=== PATIENT | female | born 1935 | race American Indian/Alaskan Native ===

== ENCOUNTER 2019-04-26 10:45 | Inpatient (IN) | payer MEDICARE ==
[2019-04-26] MEDS ORDERED: ONDANSETRON 4 MG/2 ML INJ IV ONE (11:19)
[2019-04-26] MEDS ORDERED: LACTATED RINGERS 1,000 ML IV ONE ×2 (11:19→15:09)
--- NOTE | 2019-04-26 11:22 | Emergency Department Report ---
ED General Adult HPI - General Chief complaint: Nausea/Vomiting/Diarrhea Stated complaint: STOMACH PAIN/VOMIT Time Seen by Provider: 04/26/19 11:18 Source: patient, family Mode of arrival: Wheelchair Limitations: Physical Limitation - History of Present Illness Initial comments: Pt brought in by grandson for concerns of vomiting she states she feels fine and only vomited once this AM denies diarrhea Denies CP, abd pain, SOB, MARTIN or any other complaints States she thinks she might have eaten some bad food yesterday -: Sudden, hour(s) (3) Location: abdomen Radiation: non-radiation Severity scale (0 -10): 0 Consistency: intermittent Improves with: none Worsens with: none Associated Symptoms: denies other symptoms, nausea/vomiting Treatments Prior to Arrival: none - Related Data Home Medications Medication Instructions Recorded Confirmed Last Taken Aspirin [Aspirin TAB] 325 mg PO PRN PRN 10/08/17 10/08/17 Unknown Ciprofloxacin HCl [Cipro] 500 mg PO BID 10/08/17 10/08/17 Unknown Citalopram [celeXA] 10 mg PO QDAY 10/08/17 10/08/17 Unknown HYDROcodone/APAP 5-325 [[place] 1 each PO Q6HR PRN 10/08/17 10/08/17 Unknown 5/325] Losartan/Hydrochlorothiazide 1 each PO DAILY 10/08/17 10/08/17 Unknown [Losartan-Hctz 50-12.5 mg Tab] Previous Rx's Medication Instructions Recorded Last Taken Type Ondansetron [Zofran Odt] 4 mg PO Q8HR #12 tab.rapdis 04/26/19 Unknown Rx Allergies Allergy/AdvReac Type Severity Reaction Status Date / Time Penicillins Allergy Swelling Verified 07/09/13 13:40 Sulfa (Sulfonamide Allergy Headache Verified 07/09/13 13:40 Antibiotics) ED Review of Systems ROS: Stated complaint: STOMACH PAIN/VOMIT Other details as noted in HPI Comment: All other systems reviewed and negative Gastrointestinal: as per HPI ED Past Medical Hx - Past Medical History Previous Medical History?: Yes Hx Hypertension: Yes (X 10 YRS) Hx Diabetes: Yes Hx Kidney Stones: Yes Hx Dementia: Yes Hx HIV: No Additional medical history: prolapsed bladder - Surgical History Past Surgical History?: Yes Hx Breast Surgery: Yes (AUGMENTATION , REMOVAL OF IMPLANTS) Additional Surgical History: hernia repair - Social History Smoking Status: Never Smoker Substance Use Type: Prescribed - Medications Home Medications: Home Medications Medication Instructions Recorded Confirmed Last Taken Type Aspirin [Aspirin TAB] 325 mg PO PRN PRN 10/08/17 10/08/17 Unknown History Ciprofloxacin HCl [Cipro] 500 mg PO BID 10/08/17 10/08/17 Unknown History Citalopram [celeXA] 10 mg PO QDAY 10/08/17 10/08/17 Unknown History HYDROcodone/APAP 5-325 [[place] 1 each PO Q6HR PRN 10/08/17 10/08/17 Unknown History 5/325] Losartan/Hydrochlorothiazide 1 each PO DAILY 10/08/17 10/08/17 Unknown History [Losartan-Hctz 50-12.5 mg Tab] Ondansetron [Zofran Odt] 4 mg PO Q8HR #12 tab.rapdis 04/26/19 Unknown Rx ED Physical Exam - General Limitations: Physical Limitation General appearance: alert, in no apparent distress - Head Head exam: Present: atraumatic, normocephalic - Eye Eye exam: Present: normal appearance - ENT ENT exam: Present: mucous membranes moist - Neck Neck exam: Present: normal inspection - Respiratory Respiratory exam: Present: normal lung sounds bilaterally. Absent: respiratory distress - Cardiovascular Cardiovascular Exam: Present: normal rhythm, bradycardia. Absent: systolic murmur, diastolic murmur, rubs, gallop - GI/Abdominal GI/Abdominal exam: Present: soft, normal bowel sounds. Absent: distended, tenderness, guarding, rebound - Extremities Exam Extremities exam: Present: normal inspection - Back Exam Back exam: Present: normal inspection. Absent: CVA tenderness (R), CVA tenderness (L) - Neurological Exam Neurological exam: Present: alert, oriented X3 - Psychiatric Psychiatric exam: Present: normal affect, normal mood - Skin Skin exam: Present: warm, dry, intact, normal color. Absent: rash ED Course Vital Signs 04/26/19 10:49 Temperature 98.4 F Pulse Rate 50 L Respiratory 18 Rate Blood Pressure 156/73 O2 Sat by Pulse 97 Oximetry ED Medical Decision Making - Lab Data Result diagrams: 04/26/19 11:43 04/26/19 11:43 Lab Results 04/26/19 04/26/19 04/26/19 Range/Units 11:39 11:43 11:43 WBC 6.8 (4.5-11.0) K/mm3 RBC 4.87 (3.65-5.03) M/mm3 Hgb 13.5 (10.1-14.3) gm/dl Hct 40.4 (30.3-42.9) % MCV 83 (79-97) fl MCH 28 (28-32) pg MCHC 34 (30-34) % RDW 14.1 (13.2-15.2) % Plt Count 227 (140-440) K/mm3 Lymph % (Auto) 19.6 (13.4-35.0) % Dunn % (Auto) 4.0 (0.0-7.3) % Eos % (Auto) 0.4 (0.0-4.3) % Baso % (Auto) 0.8 (0.0-1.8) % Lymph # 1.3 (1.2-5.4) K/mm3 Dunn # 0.3 (0.0-0.8) K/mm3 Eos # 0.0 (0.0-0.4) K/mm3 Baso # 0.1 (0.0-0.1) K/mm3 Seg Neutrophils % 75.2 H (40.0-70.0) % Seg Neutrophils # 5.1 (1.8-7.7) K/mm3 Sodium 136 L (137-145) mmol/L Potassium 4.0 (3.6-5.0) mmol/L Chloride 97.4 L (98-107) mmol/L Carbon Dioxide 24 (22-30) mmol/L Anion Gap 19 mmol/L BUN 20 H (7-17) mg/dL Creatinine 1.0 (0.7-1.2) mg/dL Estimated GFR > 60 ml/min BUN/Creatinine Ratio 20 % Glucose 112 H (65-100) mg/dL Calcium 10.0 (8.4-10.2) mg/dL Total Bilirubin 0.60 (0.1-1.2) mg/dL AST 15 (5-40) units/L ALT 7 (7-56) units/L Alkaline Phosphatase 51 (35-129) units/L Troponin T < 0.010 (0.00-0.029) ng/mL Total Protein 8.7 H (6.3-8.2) g/dL Albumin 4.3 (3.9-5) g/dL Albumin/Globulin Ratio 1.0 % Lipase 25 (13-60) units/L Urine Color Straw (Yellow) Urine Turbidity Clear (Clear) Urine pH 8.0 H (5.0-7.0) Ur Specific Ola 1.012 (1.003-1.030) Urine Protein <15 mg/dl (Negative) mg/dL Urine Glucose (UA) Neg (Negative) mg/dL Urine Ketones Neg (Negative) mg/dL Urine Blood Neg (Negative) Urine Nitrite Neg (Negative) Urine Bilirubin Neg (Negative) Urine Urobilinogen < 2.0 (<2.0) mg/dL Ur Leukocyte Esterase Sm (Negative) Urine WBC (Auto) 2.0 (0.0-6.0) /HPF Urine RBC (Auto) 2.0 (0.0-6.0) /HPF U Epithel Cells (Auto) < 1.0 (0-13.0) /HPF Urine Mucus Few /HPF - EKG Data -: EKG Interpreted by Me EKG shows normal: sinus rhythm Rate: bradycardia - EKG Data Interpretation: no acute changes - Medical Decision Making vomiting x one today pt with no complaints grandson wanted her checked out I did give her IVF and zofran w improvement labs stable overall recommend supportive care, pcp fu RTER for worsening sx/other concerns Able to tolerate PO here, abdomen soft, nontender - Differential Diagnosis gastritis, gastroenteritis, dehydration Critical care attestation.: If time is entered above; I have spent that time in minutes in the direct care of this critically ill patient, excluding procedure time. ED Disposition Clinical Impression: Vomiting Qualifiers: Vomiting type: unspecified Vomiting Intractability: non-intractable Nausea pres ence: with nausea Qualified Code(s): R11.2 - Nausea with vomiting, unspecified Disposition: DC-01 TO HOME OR SELFCARE Is pt being admited?: No Condition: Good Instructions: Acute Nausea and Vomiting (ED) Prescriptions: Ondansetron [Zofran Odt] 4 mg PO Q8HR #12 tab.rapdis Referrals: PRIMARY CARE, [Primary Care Provider] - 2-3 Days Time of Disposition: 14:34
[2019-04-26 11:49] LABS: Basophils # (Auto) 0.1 K/mm3 (0.0-0.1); Basophils % (Auto) 0.8 % (0.0-1.8); Eosinophils % (Auto) 0.4 % (0.0-4.3); Hematocrit 40.4 % (30.3-42.9); Hemoglobin 13.5 gm/dl (10.1-14.3); Lymphocytes # (Auto) 1.3 K/mm3 (1.2-5.4); Lymphocytes % (Auto) 19.6 % (13.4-35.0); Mean Corpuscular HGB Conc 34 % (30-34); Mean Corpuscular Volume 83 fl (79-97); Monocytes # (Auto) 0.3 K/mm3 (0.0-0.8); Platelet Count 227 K/mm3 (140-440); Red Blood Count 4.87 M/mm3 (3.65-5.03); Red Cell Distribution Width 14.1 % (13.2-15.2)
[2019-04-26 12:04] LABS: Alanine Aminotransferase 7 units/L (7-56); Albumin 4.3 g/dL (3.9-5); BUN/Creatinine Ratio 20; Blood Urea Nitrogen 20 mg/dL (7-17); Hemolysis Index 5
[2019-04-26] MEDS ORDERED: ONDANSETRON 4 MG ODT TAB PO ONE (14:19)
[2019-04-26] MEDS ORDERED: ONDANSETRON 4 MG ODT TAB ONE (14:22)
[2019-04-26 14:24] LABS: Bilirubin,Urine NEG (Negative); Blood,Urine NEG (Negative); Color,Urine Straw (Yellow); Mucus,Urine FEW /HPF; Protein,Urine <15 mg/dL mg/dL (Negative); Urobilinogen,Urine < 2.0 mg/dL (<2.0)
[2019-04-26] MEDS ORDERED: PROMETHAZINE 25 MG TAB PO ONE (14:51)
[2019-04-26] MEDS ORDERED: PROMETHAZINE 25 MG TAB ONE (14:54)
[2019-04-26] MEDS ORDERED: diphenhydrAMINE 50 MG/ML VIAL IV ONE (15:09)
[2019-04-26] MEDS ORDERED: METOCLOPRAMIDE 10 MG/2 ML INJ IV ONE (15:09)
--- NOTE | 2019-04-26 16:56 | Cat Scan Report ---
CT abdomen pelvis wo con INDICATION / CLINICAL INFORMATION: abd pain. TECHNIQUE: Axial CT imaging of abdomen and pelvis was obtained without contrast. Coronal and sagittal reformatte d imaging obtained and reviewed. All CT scans at this location are performed using CT dose reduction for ALARA by means of automated exposure control. COMPARISON: Prior CT, 10/05/2017 FINDINGS: CT abdomen without contrast demonstrates grossly normal appearance of the liver, spleen, pancreas, ad renal glands, and gallbladder. There are nonobstructing calculi in the lower pole of the left kidney. Vascular calcification is noted within the right kidney. Small hiatal hernia is present. CT pelvis demonstrates several dilated loops of fluid-filled bowel which appear inflamed. These are p resent in the left side of the abdomen. The bowel proximal and distal to these abnormal loops of smal l bowel are nondilated. The appearance is certainly worrisome for bowel obstruction due to presence o f internal hernia within the left midabdomen. Remainder of the GI tract is grossly unremarkable other than diverticulosis throughout the colon. A small amount of free fluid is seen scattered throughout the pelvis. A normal appendix is present in the right lower quadrant. Visualized lung bases are grossly clear. No significant osseous abnormality. IMPRESSION: 1. Several loops of dilated fluid-filled bowel are present in the left midabdomen and have an appeara nce consistent with small bowel obstruction. The overall appearance is worrisome for obstruction due to an internal hernia. 2. Nephrolithiasis. 3. Diverticulosis. Signer Name: Jody Velarde MD Signed: 04/26/2019 4:51 PM Workstation Name: [id number]
[2019-04-26] MEDS ORDERED: clonazePAM 0.5 MG TAB PO ONE (17:25)
[2019-04-26] MEDS ORDERED: ONDANSETRON 4 MG/2 ML INJ IV PRN ×3 (17:44→21:12)
[2019-04-26] MEDS ORDERED: ALBUTEROL 2.5 MG/3 ML NEBU IH PRN (17:44)
[2019-04-26] MEDS ORDERED: ACETAMINOPHEN 325 MG TAB PO PRN (17:44)
--- NOTE | 2019-04-26 17:47 | History and Physical Report ---
History of Present Illness Chief complaint: I feel nauseated, I think I ate some bad food History of present illness: 84 YO Female with Dementia, HTN presents to ED for evaluation. Pt states that she experienced an episode of vomiting today which was followed by persistent nausea. Pt grandson became concerned and transported pt to [facility] via private vehicle. Pt seen and evaluated in ED and found to have an Incarcerated Internal Hernia complicated by bowel obstruction. Surgery team consulted in ED. Pt to OR as per surgical team. Pt denies Fever, Chills, CP,Palpitations, loose stools, Abdominal Pain, BRBPR, Hemoptysis, Skin Rash, Unintentional Weight Loss, or Night Sweats. Prior admission on 10/03/17 reviewed. All listed medication reconciled at time of exam. Past History Past Medical History: hypertension, other (Dementia, ) Past Surgical History: Other (breast, Renal Stent) Social history: . denies: smoking, alcohol abuse, prescription drug abuse Family history: hypertension Medications and Allergies Allergies Allergy/AdvReac Type Severity Reaction Status Date / Time Penicillins Allergy Swelling Verified 07/09/13 13:40 Sulfa (Sulfonamide Allergy Headache Verified 07/09/13 13:40 Antibiotics) Home Medications Medication Instructions Recorded Confirmed Last Taken Type Aspirin [Aspirin TAB] 325 mg PO PRN PRN 10/08/17 04/26/19 Unknown History Losartan/Hydrochlorothiazide 1 each PO DAILY 10/08/17 04/26/19 Unknown History [Losartan-Hctz 50-12.5 mg Tab] Atenolol [Tenormin] 50 mg PO DAILY 04/26/19 04/26/19 Unknown History Donepezil HCl 5 mg PO HS 04/26/19 04/26/19 Unknown History Hydralazine HCl 25 mg PO BID 04/26/19 04/26/19 Unknown History Ondansetron [Zofran Odt] 4 mg PO Q8HR #12 tab.rapdis 04/26/19 Unknown Rx Active Meds: Active Medications Acetaminophen (Tylenol) 650 mg PO Q4H PRN PRN Reason: Pain MILD(1-3)/Fever >100.5/MARTIN Albuterol (Proventil) 2.5 mg IH Q4HRT PRN PRN Reason: Shortness Of Breath Ondansetron HCl (Zofran) 4 mg IV Q8H PRN PRN Reason: Nausea And Vomiting Sodium Chloride (Sodium Chloride Flush Syringe 10 Ml) 10 ml IV BID KARLY Sodium Chloride (Sodium Chloride Flush Syringe 10 Ml) 10 ml IV PRN PRN PRN Reason: LINE FLUSH Review of Systems Constitutional: no weight loss, no weight gain, no fever, no chills Ears, nose, mouth and throat: no ear pain, no ear discharge, no tinnitis, no nasal discharge, no sinus pressure Breasts: no change in shape, no swelling, no mass Cardiovascular: no chest pain, no orthopnea, no palpitations, no rapid/irregular heart beat, no edema, no syncope, no lightheadedness Respiratory: no cough, no excessive sputum, no hemoptysis, no shortness of breath, no dyspnea on exertion Gastrointestinal: nausea, no abdominal pain, no vomiting, no diarrhea, no hematemesis, no coffee ground emesis, no melena, no hematochezia, no early satiety, no heartburn Genitourinary Female: no pelvic pain, no flank pain, no menorrhagia, no dysuria, no urinary frequency, no urgency Rectal: no pain, no incontinence, no bleeding Musculoskeletal: no neck stiffness, no neck pain, no arm numbness/tingling, no low back pain, no shooting leg pain Integumentary: no rash, no pruritis, no redness, no sores, no wounds Neurological: no transient paralysis, no paralysis, no weakness, no parathesias, no tingling, no syncope, no ataxia, no lack of coordination Psychiatric: no anxiety, no memory loss, no change in sleep habits, no sleep disturbances, no insomnia, no hypersomnia, no change in appetite, no change in libido, no suicidal ideation Endocrine: no cold intolerance, no heat intolerance, no polyphagia, no excessive thirst, no polydipsia, no polyuria, no excessive sweating, no flushing Hematologic/Lymphatic: no easy bruising, no easy bleeding, no lymphadenopathy, no lymphedema Allergic/Immunologic: no urticaria, no allergic rhinitis, no wheezing, no anaphylaxis, no angioedema Exam - Constitutional Vitals: Temp Pulse Resp BP Pulse Ox 98.1 F 50 L 20 113/71 98 04/26/19 16:45 04/26/19 16:45 04/26/19 16:45 04/26/19 16:45 04/26/19 16:45 General appearance: Present: no acute distress, well-nourished - EENT Eyes: Present: PERRL ENT: hearing intact, clear oral mucosa - Neck Neck: Present: supple, normal ROM - Respiratory Respiratory effort: normal Respiratory: bilateral: CTA - Cardiovascular Heart Sounds: Present: S1 & S2. Absent: rub, click - Extremities Extremities: pulses symmetrical, No edema Peripheral Pulses: within normal limits - Abdominal General gastrointestinal: Present: soft, non-tender, non-distended, normal bowel sounds Female genitourinary: Present: normal - Integumentary Integumentary: Present: clear, warm, dry - Musculoskeletal Musculoskeletal: gait normal, strength equal bilaterally - Psychiatric Psychiatric: appropriate mood/affect, intact judgment & insight - Neurologic Neurologic: CNII-XII intact, moves all extremities Results - Labs CBC & Chem 7: 04/26/19 11:43 04/26/19 11:43 Labs: Abnormal lab results 04/26/19 04/26/19 04/26/19 Range/Units 11:39 11:43 11:43 Seg Neutrophils % 75.2 H (40.0-70.0) % Sodium 136 L (137-145) mmol/L Chloride 97.4 L (98-107) mmol/L BUN 20 H (7-17) mg/dL Glucose 112 H (65-100) mg/dL Total Protein 8.7 H (6.3-8.2) g/dL Urine pH 8.0 H (5.0-7.0) Assessment and Plan - Patient Problems (1) Internal hernia Current Visit: Yes Status: Acute Plan to address problem: Surgery consulted in ED, pending surgical intervention, bowel rest, NPO, IVF resuscitation therapy, CT Abdomen/Pelvis, serial abdominal exam. (2) Dementia Current Visit: Yes Status: Acute Qualifiers: Dementia type: vascular dementia Dementia behavioral disturbance: without behavioral disturbance Qualified Code(s): F01.50 - Vascular dementia without behavioral disturbance Plan to address problem: Supportive care, continue medical management. (3) Small bowel obstruction Current Visit: Yes Status: Acute Plan to address problem: CT ABdomen pelvis, anti-emetic therapy, Bowel rest, IVF resuscitation therapy, surgery consulted, (4) Advance care planning Current Visit: Yes Status: Acute Plan to address problem: Pt daughter and grandson at bedside. Discussed care plan, code status, and ris ks/benefits associated with surgery. Pt family acknowledges understanding and agreement with care plan. (5) DVT prophylaxis Current Visit: Yes Status: Acute Plan to address problem: SCD to BLE while in bed, supportive care.
[2019-04-26] MEDS ORDERED: HYDROmorphone 1 MG/1 ML INJ IV PRN (18:32)
--- NOTE | 2019-04-26 18:33 | Anesthesia Day of Surgery ---
Anesthesia Day of Surgery - Day of Surgery Patient Examined: Yes Patient H&P Reviewed: Yes Patient is NPO: Yes
--- NOTE | 2019-04-26 18:37 | Anesthesia Consultation ---
Anesthesia Consult and Med Hx Date of service: 04/26/19 - Airway Anesthetic Teeth Evaluation: Good, Dentures (upper), Edentulous (upper edent) ROM Head & Neck: Adequate Mental/Hyoid Distance: Adequate Mallampati Class: Class II Intubation Access Assessment: Good - Pre-Operative Health Status ASA Pre-Surgery Classification: ASA2, Emergency Proposed Anesthetic Plan: General - Pulmonary Hx Smoking: No Hx Sleep Apnea: No (NORA PRE SCREEN LOW RISK) - Cardiovascular System Hx Hypertension: Yes (X 10 YRS. States she can climb two flights of stairs) - Central Nervous System Hx Neuromuscular Disorder: Yes (Dementia. Pt alert and appropriate) Hx Back Pain: Yes (FROM STONE) - Endocrine Hx Renal Disease: Yes (Hx stones last year; bladder prolapse) Hx Non-Insulin Dependent Diabetes: No - Other Systems Hx Cancer: No
[2019-04-26] MEDS ORDERED: ROCURONIUM 50 MG/5 ML INJ IV ONE (18:49)
[2019-04-26] MEDS ORDERED: HYDROmorphone 1 MG/1 ML INJ ONE (18:49)
[2019-04-26] MEDS ORDERED: LIDOCAINE MPF (2%) 20 MG/1 ML VIAL 5 ML ONE (18:49)
[2019-04-26] MEDS ORDERED: PROPOFOL 200 MG/20 ML VIAL IV ONE (18:49)
[2019-04-26 18:59] LABS: INR 1.01 (0.87-1.13)
[2019-04-26 19:01] LABS: Partial Thromboplastin Time 31.8 Sec. (24.2-36.6)
[2019-04-26] MEDS ORDERED: metroNIDAZOLE/NS 500 MG/100 ML 500 MG/100 ML BAG IV ONE (19:47)
[2019-04-26] MEDS ORDERED: VANCOMYCIN 1000 MG INJ ONE (19:47)
[2019-04-26] MEDS ORDERED: SODIUM CHLORIDE 0.9% 250ML 250 ML ONE (19:48)
[2019-04-26] MEDS ORDERED: LACTATED RINGERS 1,000 ML ONE (19:49)
[2019-04-26] MEDS ORDERED: SODIUM CHLORIDE 0.9% IRR 1,500 ML BOTTLE IR ONE (20:45)
[2019-04-26] MEDS ORDERED: GLYCOPYRROLATE 0.4 MG/2 ML INJ ONE (20:50)
[2019-04-26] MEDS ORDERED: NEOSTIGMINE 10MG/10 ML INJ MDV ONE (20:50)
[2019-04-26] MEDS ORDERED: ONDANSETRON 4 MG/2 ML INJ ONE (20:51)
[2019-04-26] MEDS ORDERED: SUCCINYLCHOLINE CHLORIDE 200 MG/10 ML INJ MDV ONE (20:51)
--- NOTE | 2019-04-26 21:39 | Operative Report ---
PREOPERATIVE DIAGNOSIS: Rule out small-bowel obstruction, rule out internal volvulus. POSTOPERATIVE DIAGNOSIS: Rule out small-bowel obstruction, rule out internal volvulus. PROCEDURE: Emergency exploratory laparotomy, lysis of adhesions, and lysis of thick omental band causing the internal volvulus. SURGEON: Johnny Keys MD ANESTHESIA: General. ESTIMATED BLOOD LOSS: Minimal. DRAINS: None. COMPLICATIONS: None. DESCRIPTION OF PROCEDURE: The patient was taken to the operating room, prepped and draped in usual sterile fashion. A midline incision was made and abdomen entered. Upon entrance into the abdomen, dilated bowel loop segment was noted in the midportion of the small bowel. Distally, the bowel was noted to be collapsed heading towards the cecum. The omentum was noted to be adhered to a portion of the small bowel. Dissection was carried out until the fence of band was identified. This was a very thick omental band and the small bowel was twisting around it. The band was released with the Harmonic scalpel. The rest of the small bowel was then run from ligament of Treitz down to the ileocecal valve. A few other adhesions were noted, which were lysed. No other obstructive bands were noted. The small bowel was once again run this time in a retrograde fashion from the ileocecal valve back up to the ligament of Treitz. Again, no other obstructions noted. The area of obstruction was then carefully inspected and noted to be completely open with good peristalsis. The serosa was pink throughout. The NG tube was then palpated and confirmed to be in proper placement in the stomach. No other gross intra-abdominal pathologies were noted. The abdomen was then irrigated copiously and suctioned dry. Checked for hemostasis and noted to be dry. The fascia was then closed with interrupted #1 Vicryl suture. Subcutaneous tissues irrigated and skin closed with phill. Abdominal binder will also be placed. The patient tolerated the procedure well and left the OR in stable condition. JOB# [id number] DAGO/MORGAN
[2019-04-26] MEDS ORDERED: fentaNYL 100 MCG/2 ML INJ ONE (21:45)
[2019-04-26] MEDS: fentaNYL 100 MCG/2 ML INJ IV PRN ×2 (21:46→21:55)
[2019-04-26] MEDS: MORPHINE 4 MG/1 ML INJ IV PRN (22:44)
[2019-04-26] MEDS: DONEPEZIL 5 MG TAB PO SCH (23:03)
[2019-04-26] MEDS: FAMOTIDINE 20 MG/2 ML INJ IV SCH (23:03)
[2019-04-26] MEDS: D5W/0.45% NACL/KCL 20 MEQ 20 MEQ/1,000 ML BAG IV SCH (23:54)
--- NOTE | 2019-04-27 00:43 | Consultation ---
REASON FOR CONSULTATION: Persistent vomiting, rule out bowel obstruction, rule out internal volvulus. HISTORY OF PRESENT ILLNESS: The patient is an 84-year-old female who presents to the Emergency Room with recent onset of nausea and vomiting, which has not improved. PAST MEDICAL HISTORY: Pertinent for hypertension and dementia. PAST SURGICAL HISTORY: Status post umbilical hernia repair. Also, status post bilateral breast augmentations and a questionable left breast biopsy prior to the augmentation. ALLERGIES: ALLERGIC TO PENICILLIN AND SULFA. PENICILLIN CAUSES rash FAMILY HISTORY: Hypertension. SOCIAL HISTORY: Denies any smoking or drinking. It is noted the patient has beginnings of dementia. Family is also present in the room including her daughter and the patient's grandson, who have also contributed to the history and the therapeutic discussion. PHYSICAL EXAMINATION: GENERAL: At this time reveals the patient to be awake and cooperative. No acute distress. VITAL SIGNS: Show her to be afebrile with a temperature of 98.1, blood pressure is 113/71, pulse of 50, and respirations of 20. HEENT: Pupils are equal and reactive to light and accommodation. Sclerae are nonicteric. ABDOMEN: Examination of the abdomen reveals to be moderately obese. There is mild distention at this time, but minimal tenderness. An old scar is noted in the area of the umbilicus, a vertical scar. Bowel sounds are hypoactive to hyperperistaltic. LABORATORY DATA: Lab work at present includes a CBC, which shows a white count of 6.8, H and H of 13 and 40. Electrolytes are essentially within normal limits including sodium 136, potassium of 4, chloride of 97, BUN is 20, creatinine is 1. Lipase is 25. CT scan of the abdomen has been performed. Findings are as follows: impression is several loops of dilated fluid filled bowel are present in the left mid abdomen and have an appearance consistent with a small-bowel obstruction. The overall appearance is worrisome for obstruction due to an internal hernia. IMPRESSION: 1. At this time is that of an 84-year-old elderly demented patient with persistent nonresolving nausea and vomiting. 2. Rule out bowel obstruction with worrisome signs of a possible internal herniation. PLAN: At this time is to proceed with emergency exploratory laparotomy, possible bowel resection. High risks have been reviewed with the patient as well as her family. Indications and complications have also been reviewed and discussed thoroughly. Family understands and is agreeable to proceed with the surgery. Both the patient as well as the daughter has signed a consent. We will proceed with emergency exploratory laparotomy at this time. JOB# [id number] DAGO/MORGAN
[2019-04-27] MEDS: MORPHINE 4 MG/1 ML INJ IV PRN (03:54)
[2019-04-27 05:36] LABS: Basophils % (Auto) 0.2 % (0.0-1.8); Hematocrit 37.7 % (30.3-42.9); Hemoglobin 12.5 gm/dl (10.1-14.3); Lymphocytes # (Auto) 1.1 K/mm3 (1.2-5.4); Lymphocytes % (Auto) 8.7 % (13.4-35.0); Mean Corpuscular HGB Conc 33 % (30-34); Mean Corpuscular Volume 84 fl (79-97); Monocytes # (Auto) 0.7 K/mm3 (0.0-0.8); Monocytes % (Auto) 5.3 % (0.0-7.3); Platelet Count 207 K/mm3 (140-440); Red Cell Distribution Width 14.2 % (13.2-15.2)
[2019-04-27 05:59] LABS: Alanine Aminotransferase 6 units/L (7-56); Albumin 3.5 g/dL (3.9-5); BUN/Creatinine Ratio 16; Blood Urea Nitrogen 13 mg/dL (7-17); Calcium 8.7 mg/dL (8.4-10.2); Hemolysis Index 25
--- NOTE | 2019-04-27 07:26 | Progress Note ---
Assessment and Plan Assessment and plan: --Small bowel obstruction; Status post exploratory laparotomy lysis of additions and lysis of thick omental band causing internal volvulus Postop care per surgery --Hyponatremia; continue IV fluid mild improvement Follow electrolytes --Leukocytosis; secondary to underlying disease process Closely monitor --Dementia; supportive care --History of hypertension; moderate controlled Continue current antihypertensives and when necessary medications --DVT prophylaxis; SCDs --Full code Monitor clinically and adjust management as needed Plan of care reviewed with the patient family member at the bedside and the nurse History Interval history: Patient Seen and examined medical records reviewed Patient was admitted with symptoms of small bowel obstruction evaluated by surgery, underwent exploratory laparotomy lysis of additions and lysis of thick omental band causing internal volvulus Patient feels slightly better Vital signs reviewed Hospitalist Physical - Constitutional Vitals: Temp Pulse Resp BP Pulse Ox 97.5 F L 52 L 17 147/65 95 04/27/19 04:03 04/27/19 06:51 04/27/19 06:51 04/27/19 06:51 04/27/19 06:51 General appearance: Present: no acute distress, well-nourished - EENT Eyes: Present: PERRL, EOM intact - Neck Neck: Present: supple, normal ROM - Respiratory Respiratory effort: normal Respiratory: bilateral: diminished, negative: rales, rhonchi, wheezing - Cardiovascular Rhythm: regular Heart Sounds: Present: S1 & S2 - Extremities Extremities: no ischemia, No edema - Abdominal General gastrointestinal: soft, non-tender, non-distended, normal bowel sounds - Integumentary Integumentary: Present: clear, warm - Psychiatric Psychiatric: appropriate mood/affect, cooperative - Neurologic Neurologic: moves all extremities Results - Labs CBC & Chem 7: 04/27/19 04:57 04/27/19 04:57 Labs: Laboratory Last Values WBC 12.7 K/mm3 (4.5-11.0) H 04/27/19 04:57 RBC 4.50 M/mm3 (3.65-5.03) 04/27/19 04:57 Hgb 12.5 gm/dl (10.1-14.3) 04/27/19 04:57 Hct 37.7 % (30.3-42.9) 04/27/19 04:57 MCV 84 fl (79-97) 04/27/19 04:57 MCH 28 pg (28-32) 04/27/19 04:57 MCHC 33 % (30-34) 04/27/19 04:57 RDW 14.2 % (13.2-15.2) 04/27/19 04:57 Plt Count 207 K/mm3 (140-440) 04/27/19 04:57 Lymph % (Auto) 8.7 % (13.4-35.0) L 04/27/19 04:57 [place] % (Auto) 5.3 % (0.0-7.3) 04/27/19 04:57 Eos % (Auto) 0.0 % (0.0-4.3) 04/27/19 04:57 Baso % (Auto) 0.2 % (0.0-1.8) 04/27/19 04:57 Lymph # 1.1 K/mm3 (1.2-5.4) L 04/27/19 04:57 [place] # 0.7 K/mm3 (0.0-0.8) 04/27/19 04:57 Eos # 0.0 K/mm3 (0.0-0.4) 04/27/19 04:57 Baso # 0.0 K/mm3 (0.0-0.1) 04/27/19 04:57 Seg Neutrophils % 85.8 % (40.0-70.0) H 04/27/19 04:57 Seg Neutrophils # 10.9 K/mm3 (1.8-7.7) H 04/27/19 04:57 PT 13.0 Sec. (12.2-14.9) 04/26/19 18:15 INR 1.01 (0.87-1.13) 04/26/19 18:15 APTT 31.8 Sec. (24.2-36.6) 04/26/19 18:15 Sodium 131 mmol/L (137-145) L 04/27/19 04:57 Potassium 4.4 mmol/L (3.6-5.0) 04/27/19 04:57 Chloride 96.2 mmol/L (98-107) L 04/27/19 04:57 Carbon Dioxide 25 mmol/L (22-30) 04/27/19 04:57 Anion Gap 14 mmol/L 04/27/19 04:57 BUN 13 mg/dL (7-17) 04/27/19 04:57 Creatinine 0.8 mg/dL (0.7-1.2) 04/27/19 04:57 Estimated GFR > 60 ml/min 04/27/19 04:57 BUN/Creatinine Ratio 16 % 04/27/19 04:57 Glucose 164 mg/dL (65-100) H 04/27/19 04:57 Calcium 8.7 mg/dL (8.4-10.2) 04/27/19 04:57 Total Bilirubin 0.60 mg/dL (0.1-1.2) 04/27/19 04:57 AST 16 units/L (5-40) 04/27/19 04:57 ALT 6 units/L (7-56) L 04/27/19 04:57 Alkaline Phosphatase 40 units/L (35-129) 04/27/19 04:57 Troponin T < 0.010 ng/mL (0.00-0.029) 04/26/19 11:43 Total Protein 7.0 g/dL (6.3-8.2) 04/27/19 04:57 Albumin 3.5 g/dL (3.9-5) L 04/27/19 04:57 Albumin/Globulin Ratio 1.0 % 04/27/19 04:57 Lipase 25 units/L (13-60) 04/26/19 11:43 Urine Color Straw (Yellow) 04/26/19 11:39 Urine Turbidity Clear (Clear) 04/26/19 11:39 Urine pH 8.0 (5.0-7.0) H 04/26/19 11:39 Ur Specific [place] 1.012 (1.003-1.030) 04/26/19 11:39 Urine Protein <15 mg/dl mg/dL (Negative) 04/26/19 11:39 Urine Glucose (UA) Neg mg/dL (Negative) 04/26/19 11:39 Urine Ketones Neg mg/dL (Negative) 04/26/19 11:39 Urine Blood Neg (Negative) 04/26/19 11:39 Urine Nitrite Neg (Negative) 04/26/19 11:39 Urine Bilirubin Neg (Negative) 04/26/19 11:39 Urine Urobilinogen < 2.0 mg/dL (<2.0) 04/26/19 11:39 Ur Leukocyte Esterase Sm (Negative) 04/26/19 11:39 Urine WBC (Auto) 2.0 /HPF (0.0-6.0) 04/26/19 11:39 Urine RBC (Auto) 2.0 /HPF (0.0-6.0) 04/26/19 11:39 U Epithel Cells (Auto) < 1.0 /HPF (0-13.0) 04/26/19 11:39 Urine Mucus Few /HPF 04/26/19 11:39 Blood Type A POSITIVE 04/26/19 Unknown Antibody Screen Negative 04/26/19 Unknown Active Medications - Current Medications Current Medications: Generic Name Dose Route Start Last Admin Trade Name Freq PRN Reason Stop Dose Admin Acetaminophen 650 mg 04/26/19 17:44 Tylenol PO Q4H PRN Pain MILD(1-3)/Fever >100.5/MARTIN Albuterol 2.5 mg 04/26/19 17:44 Proventil IH Q4HRT PRN Shortness Of Breath Donepezil HCl 5 mg 04/26/19 22:00 04/26/19 23:03 Aricept PO Not Given QHS KARLY Famotidine 20 mg 04/26/19 22:00 04/26/19 23:03 Pepcid IV Not Given BID KARLY Potassium Chloride/Dextrose/Sod Cl 20 meq in 1,000 mls @ 100 mls/hr 04/26/19 22:00 04/26/19 23:54 D5w/0.45% Nacl/Kcl 20 Meq IV 100 mls/hr DIRECT KARLY Administration Morphine Sulfate 4 mg 04/26/19 21:12 04/27/19 03:54 Morphine IV 4 mg Q4H PRN Administration Pain , Severe (7-10) Ondansetron HCl 4 mg 04/26/19 21:12 Zofran IV Q4H PRN N/V unrelieved by Ronel Sodium Chloride 10 ml 04/26/19 22:00 04/26/19 23:00 Sodium Chloride Flush Syringe 10 Ml IV 10 ml BID KARLY Administration Sodium Chloride 10 ml 04/26/19 17:44 Sodium Chloride Flush Syringe 10 Ml IV PRN PRN LINE FLUSH
--- NOTE | 2019-04-27 08:26 | Post Anesthesia Evaluation ---
- Post Anesthesia Evaluation Patient Participated: Yes Airway Patent: Yes Stable Respiratory Function: Yes Nausea/Vomiting: No Temp > 96.8F: Yes Pain Manageable: Yes Adequeate Hydration: Yes Anesthesia Complications: No Block Receding Appropriately: Not Applicable Patient on Ventilator: No
[2019-04-27] MEDS ORDERED: hydroCHLOROthiazide 12.5 MG CAP PO SCH (10:00)
[2019-04-27] MEDS ORDERED: LOSARTAN 50 MG TAB PO SCH (10:00)
[2019-04-27] MEDS ORDERED: NON-FORMULARY EACH (Losartan/Hydrochlorothiazide [Losartan-Hctz 50-12.5 Mg Tab] 1 EACH) PO SCH (10:00)
[2019-04-27] MEDS: FAMOTIDINE 20 MG/2 ML INJ IV SCH ×2 (10:12→21:14)
--- NOTE | 2019-04-27 10:22 | Progress Note ---
Assessment and Plan POD # 1 Pt awake & alert. no specific compl U/O 900 cc Abd soft. abd binder in place stable OOB as radha may d/c godinez. UA C&S before d/c IVF as per Hospitalist f/u lytes in am Selected Entries 04/27/19 04/27/19 08:00 08:21 Temperature 97.8 F Pulse Rate 52 L Respiratory 18 Rate Blood Pressure 158/67 Laboratory Tests 04/27/19 04/27/19 04:57 04:57 WBC 12.7 H Hgb 12.5 Hct 37.7 Sodium 131 L Potassium 4.4 Chloride 96.2 L Objective Vital Signs - 12hr 04/26/19 04/26/19 04/26/19 22:24 22:30 22:40 Temperature Pulse Rate 63 63 54 L Pulse Rate [ From Monitor] Respiratory 15 11 L 22 Rate Respiratory Rate [denies] Blood Pressure 157/63 O2 Sat by Pulse 92 96 Oximetry 04/26/19 04/26/19 04/26/19 22:41 22:50 23:01 Temperature Pulse Rate 55 L 59 L Pulse Rate [ From Monitor] Respiratory 14 15 Rate Respiratory Rate [denies] Blood Pressure 157/63 160/70 O2 Sat by Pulse 95 96 92 Oximetry 04/26/19 04/26/19 04/26/19 23:06 23:10 23:11 Temperature 97.5 F L Pulse Rate 59 L 59 L Pulse Rate [ From Monitor] Respiratory 20 Rate Respiratory Rate [denies] Blood Pressure 157/63 O2 Sat by Pulse 93 Oximetry 04/26/19 04/26/19 04/26/19 23:21 23:31 23:41 Temperature Pulse Rate 56 L 55 L 59 L Pulse Rate [ From Monitor] Respiratory 14 13 14 Rate Respiratory Rate [denies] Blood Pressure 157/63 160/70 160/70 O2 Sat by Pulse 93 96 96 Oximetry 04/26/19 04/27/19 04/27/19 23:50 00:00 00:01 Temperature Pulse Rate 55 L 54 L Pulse Rate [ 53 L From Monitor] Respiratory 12 13 16 Rate Respiratory Rate [denies] Blood Pressure 160/70 O2 Sat by Pulse 95 95 95 Oximetry 04/27/19 04/27/19 04/27/19 00:10 00:21 00:31 Temperature Pulse Rate 48 L 56 L Pulse Rate [ From Monitor] Respiratory 12 12 13 Rate Respiratory Rate [denies] Blood Pressure 144/61 144/61 144/61 O2 Sat by Pulse 95 95 95 Oximetry 04/27/19 04/27/19 04/27/19 00:37 00:41 00:51 Temperature 97.5 F L Pulse Rate 57 L 49 L Pulse Rate [ From Monitor] Respiratory 12 13 Rate Respiratory Rate [denies] Blood Pressure 144/61 144/61 O2 Sat by Pulse 96 96 Oximetry 04/27/19 04/27/19 04/27/19 01:01 01:11 01:21 Temperature Pulse Rate 49 L 45 L 53 L Pulse Rate [ From Monitor] Respiratory 14 15 18 Rate Respiratory Rate [denies] Blood Pressure 142/59 142/59 142/59 O2 Sat by Pulse 96 95 94 Oximetry 04/27/19 04/27/19 04/27/19 01:31 01:41 01:51 Temperature Pulse Rate 51 L 54 L 48 L Pulse Rate [ From Monitor] Respiratory 13 12 15 Rate Respiratory Rate [denies] Blood Pressure 142/59 142/59 142/59 O2 Sat by Pulse 96 95 96 Oximetry 04/27/19 04/27/19 04/27/19 02:01 02:11 02:21 Temperature Pulse Rate 49 L 48 L 46 L Pulse Rate [ From Monitor] Respiratory 14 16 16 Rate Respiratory Rate [denies] Blood Pressure 144/59 144/59 144/59 O2 Sat by Pulse 93 96 96 Oximetry 04/27/19 04/27/19 04/27/19 02:31 02:41 02:51 Temperature Pulse Rate 50 L 49 L 51 L Pulse Rate [ From Monitor] Respiratory 13 14 14 Rate Respiratory Rate [denies] Blood Pressure 144/59 144/59 144/59 O2 Sat by Pulse 95 96 96 Oximetry 04/27/19 04/27/19 04/27/19 03:01 03:06 03:11 Temperature Pulse Rate 50 L 60 50 L Pulse Rate [ From Monitor] Respiratory 15 19 Rate Respiratory Rate [denies] Blood Pressure 144/59 146/65 O2 Sat by Pulse 90 97 Oximetry 04/27/19 04/27/19 04/27/19 03:21 03:31 03:41 Temperature Pulse Rate 63 54 L 55 L Pulse Rate [ From Monitor] Respiratory 21 20 15 Rate Respiratory Rate [denies] Blood Pressure 146/65 146/65 146/65 O2 Sat by Pulse 95 97 96 Oximetry 04/27/19 04/27/19 04/27/19 03:51 04:00 04:01 Temperature Pulse Rate 52 L 51 L Pulse Rate [ 56 L From Monitor] Respiratory 18 16 14 Rate Respiratory Rate [denies] Blood Pressure 146/65 147/59 O2 Sat by Pulse 96 96 97 Oximetry 04/27/19 04/27/19 04/27/19 04:03 04:11 04:21 Temperature 97.5 F L Pulse Rate 47 L 45 L Pulse Rate [ From Monitor] Respiratory 14 14 Rate Respiratory Rate [denies] Blood Pressure 147/59 147/59 O2 Sat by Pulse 98 97 Oximetry 04/27/19 04/27/19 04/27/19 04:31 04:41 04:51 Temperature Pulse Rate 48 L 56 L 48 L Pulse Rate [ From Monitor] Respiratory 15 17 14 Rate Respiratory Rate [denies] Blood Pressure 147/59 147/59 147/59 O2 Sat by Pulse 96 97 95 Oximetry 04/27/19 04/27/19 04/27/19 05:01 05:11 05:21 Temperature Pulse Rate 44 L 49 L 46 L Pulse Rate [ From Monitor] Respiratory 16 14 16 Rate Respiratory Rate [denies] Blood Pressure 150/63 150/63 150/63 O2 Sat by Pulse 97 97 96 Oximetry 04/27/19 04/27/19 04/27/19 05:31 05:41 05:51 Temperature Pulse Rate 50 L 45 L 46 L Pulse Rate [ From Monitor] Respiratory 15 15 17 Rate Respiratory Rate [denies] Blood Pressure 150/63 150/63 150/63 O2 Sat by Pulse 96 97 98 Oximetry 04/27/19 04/27/19 04/27/19 06:00 06:11 06:21 Temperature Pulse Rate 48 L 49 L 59 L Pulse Rate [ From Monitor] Respiratory 16 16 20 Rate Respiratory Rate [denies] Blood Pressure 147/65 147/65 147/65 O2 Sat by Pulse 96 97 96 Oximetry 04/27/19 04/27/19 04/27/19 06:31 06:41 06:51 Temperature Pulse Rate 50 L 47 L 52 L Pulse Rate [ From Monitor] Respiratory 15 15 17 Rate Respiratory Rate [denies] Blood Pressure 147/65 147/65 147/65 O2 Sat by Pulse 95 95 95 Oximetry 04/27/19 04/27/19 04/27/19 07:00 07:01 07:11 Temperature Pulse Rate 53 L 56 L 52 L Pulse Rate [ From Monitor] Respiratory 17 17 Rate Respiratory 14 Rate [denies] Blood Pressure 163/73 163/73 O2 Sat by Pulse 96 96 Oximetry 04/27/19 04/27/19 04/27/19 07:21 07:31 07:41 Temperature Pulse Rate 48 L 45 L 44 L Pulse Rate [ From Monitor] Respiratory 15 14 16 Rate Respiratory Rate [denies] Blood Pressure 163/73 163/73 163/73 O2 Sat by Pulse 97 96 96 Oximetry 04/27/19 04/27/19 04/27/19 07:51 08:00 08:01 Temperature 97.8 F Pulse Rate 65 50 L Pulse Rate [ 48 L From Monitor] Respiratory 22 15 17 Rate Respiratory Rate [denies] Blood Pressure 163/73 158/67 O2 Sat by Pulse 93 95 94 Oximetry 04/27/19 04/27/19 04/27/19 08:11 08:16 08:21 Temperature Pulse Rate 51 L 52 L Pulse Rate [ From Monitor] Respiratory 19 18 Rate Respiratory 14 Rate [denies] Blood Pressure 158/67 158/67 O2 Sat by Pulse 95 95 Oximetry 04/27/19 04/27/19 04/27/19 08:31 08:41 08:51 Temperature Pulse Rate 48 L 53 L 45 L Pulse Rate [ From Monitor] Respiratory 16 19 17 Rate Respiratory Rate [denies] Blood Pressure 158/67 158/67 158/67 O2 Sat by Pulse 95 95 96 Oximetry 04/27/19 04/27/19 04/27/19 09:01 09:11 09:21 Temperature Pulse Rate 49 L 47 L 50 L Pulse Rate [ From Monitor] Respiratory 18 17 17 Rate Respiratory Rate [denies] Blood Pressure 155/66 155/66 155/66 O2 Sat by Pulse 95 95 96 Oximetry 04/27/19 04/27/19 04/27/19 09:31 09:41 09:51 Temperature Pulse Rate 49 L 49 L 54 L Pulse Rate [ From Monitor] Respiratory 16 17 13 Rate Respiratory Rate [denies] Blood Pressure 155/66 155/66 155/66 O2 Sat by Pulse 93 93 96 Oximetry 04/27/19 10:01 Temperature Pulse Rate 49 L Pulse Rate [ From Monitor] Respiratory 18 Rate Respiratory Rate [denies] Blood Pressure 157/66 O2 Sat by Pulse 95 Oximetry - Labs 04/27/19 04:57 04/27/19 04:57 Diabetes panel 04/26/19 04/27/19 Range/Units 11:43 04:57 Sodium 136 L 131 L (137-145) mmol/L Potassium 4.0 4.4 (3.6-5.0) mmol/L Chloride 97.4 L 96.2 L (98-107) mmol/L Carbon Dioxide 24 25 (22-30) mmol/L BUN 20 H 13 (7-17) mg/dL Creatinine 1.0 0.8 (0.7-1.2) mg/dL Glucose 112 H 164 H (65-100) mg/dL Calcium 10.0 8.7 (8.4-10.2) mg/dL AST 15 16 (5-40) units/L ALT 7 6 L (7-56) units/L Alkaline Phosphatase 51 40 (35-129) units/L Total Protein 8.7 H 7.0 (6.3-8.2) g/dL Albumin 4.3 3.5 L (3.9-5) g/dL Calcium panel 04/26/19 04/27/19 Range/Units 11:43 04:57 Calcium 10.0 8.7 (8.4-10.2) mg/dL Albumin 4.3 3.5 L (3.9-5) g/dL Pituitary panel 04/26/19 04/27/19 Range/Units 11:43 04:57 Sodium 136 L 131 L (137-145) mmol/L Potassium 4.0 4.4 (3.6-5.0) mmol/L Chloride 97.4 L 96.2 L (98-107) mmol/L Carbon Dioxide 24 25 (22-30) mmol/L BUN 20 H 13 (7-17) mg/dL Creatinine 1.0 0.8 (0.7-1.2) mg/dL Glucose 112 H 164 H (65-100) mg/dL Calcium 10.0 8.7 (8.4-10.2) mg/dL Adrenal panel 04/26/19 04/27/19 Range/Units 11:43 04:57 Sodium 136 L 131 L (137-145) mmol/L Potassium 4.0 4.4 (3.6-5.0) mmol/L Chloride 97.4 L 96.2 L (98-107) mmol/L Carbon Dioxide 24 25 (22-30) mmol/L BUN 20 H 13 (7-17) mg/dL Creatinine 1.0 0.8 (0.7-1.2) mg/dL Glucose 112 H 164 H (65-100) mg/dL Calcium 10.0 8.7 (8.4-10.2) mg/dL Total Bilirubin 0.60 0.60 (0.1-1.2) mg/dL AST 15 16 (5-40) units/L ALT 7 6 L (7-56) units/L Alkaline Phosphatase 51 40 (35-129) units/L Total Protein 8.7 H 7.0 (6.3-8.2) g/dL Albumin 4.3 3.5 L (3.9-5) g/dL
[2019-04-27] MEDS: D5W/0.45% NACL/KCL 20 MEQ 20 MEQ/1,000 ML BAG IV SCH ×2 (10:32→23:30)
[2019-04-27] MEDS ORDERED: PHENOL 1.4% 177 ML BOTTLE MM PRN (14:21)
[2019-04-27] MEDS ORDERED: HALOPERIDOL 1 MG TAB PO PRN (17:57)
[2019-04-27] MEDS: HALOPERIDOL LACTATE 5 MG/1 ML INJ IM PRN (19:31)
--- NOTE | 2019-04-27 20:55 | XRay Report ---
ABDOMEN 1 VIEW(S) INDICATION: tube placement COMPARISON: None available. FINDINGS: Bowel gas pattern: There are multiple slightly prominent loops of gas containing small bowel within t he lower abdomen and pelvis. Some gas is seen within the colon. Free air: None. Calcified gallstones: None seen. Calcified urinary tract calculi: None seen. Additional Findings: NG tube tip is at the level of the GE junction/distal esophagus and needs be adv anced. Recommend advancing NG tube approximately 5-6 cm. Skeletal structures: No acute abnormality. IMPRESSION: 1. Tip of NG tube is projecting in the region of the distal esophagus/GE junction will need to be adv anced. 2. Slightly abnormal bowel gas pattern, nonspecific but more than likely adynamic ileus. Signer Name: Jody Velarde MD Signed: 04/27/2019 8:51 PM Workstation Name: [id number]
[2019-04-27] MEDS: hydrALAZINE 20 MG/1 ML INJ IV PRN (21:15)
[2019-04-27] MEDS: DONEPEZIL 5 MG TAB PO SCH (22:00)
--- NOTE | 2019-04-27 22:15 | XRay Report ---
ABDOMEN 1 VIEW(S) INDICATION / CLINICAL INFORMATION: Tube Placement. COMPARISON: 04/27/2019 at 2023 hours FINDINGS: TUBES / LINES: NG tube has been repositioned successfully. The tip is now projecting within the mid s tomach. BOWEL GAS PATTERN/EXTRALUMINAL GAS: No interval change in the appearance of the bowel gas pattern sin ce earlier radiograph. No pneumatosis or secondary signs of free air. ADDITIONAL FINDINGS: No significant additional findings. IMPRESSION: 1. Successful repositioning of the NG tube. Signer Name: Jody Velarde MD Signed: 04/27/2019 10:11 PM Workstation Name: [email or web address]
[2019-04-28] MEDS: hydrALAZINE 20 MG/1 ML INJ IV PRN (03:12)
[2019-04-28] MEDS: HALOPERIDOL LACTATE 5 MG/1 ML INJ IM PRN ×2 (03:12→18:55)
[2019-04-28 05:27] LABS: Basophils % (Auto) 0.4 % (0.0-1.8); Hematocrit 39.5 % (30.3-42.9); Hemoglobin 13.3 gm/dl (10.1-14.3); Lymphocytes # (Auto) 1.5 K/mm3 (1.2-5.4); Lymphocytes % (Auto) 13.3 % (13.4-35.0); Mean Corpuscular HGB Conc 34 % (30-34); Mean Corpuscular Volume 83 fl (79-97); Monocytes # (Auto) 0.6 K/mm3 (0.0-0.8); Monocytes % (Auto) 5.5 % (0.0-7.3); Platelet Count 220 K/mm3 (140-440); Red Blood Count 4.74 M/mm3 (3.65-5.03); Red Cell Distribution Width 14.6 % (13.2-15.2)
[2019-04-28 06:00] LABS: BUN/Creatinine Ratio 13; Blood Urea Nitrogen 10 mg/dL (7-17); Calcium 9.1 mg/dL (8.4-10.2); Hemolysis Index 8
--- NOTE | 2019-04-28 08:27 | Progress Note ---
Assessment and Plan Assessment and plan: --Hypokalemia: Replace with IV Kcl and monitor levels --Small bowel obstruction; Status post exploratory laparotomy lysis of additions and lysis of thick omental band causing internal volvulus Postop care per surgery, no flatus, continue NG tube, nothing by mouth Supportive care --Hyponatremia; continue IV fluid mild improvement Mild improvement --Leukocytosis; secondary to underlying disease process Resolved --Dementia; supportive care --History of hypertension; moderate controlled Continue current antihypertensives and when necessary medications --DVT prophylaxis; SCDs --PT increase ambulation as tolerated --Full code Monitor clinically and adjust management as needed Plan of care reviewed with the patient family member at the bedside and the nurse Critical care time 32 minutes History Interval history: Patient seen and examined medical records reviewed The patient feels slightly better did not have flatus Vital signs reviewed, NG tube in place Hospitalist Physical - Constitutional Vitals: Temp Pulse Resp BP Pulse Ox 98.8 F 86 22 161/71 95 04/28/19 04:00 04/28/19 07:00 04/28/19 07:00 04/28/19 07:00 04/28/19 07:00 General appearance: Present: no acute distress, well-nourished - EENT Eyes: Present: PERRL, EOM intact - Neck Neck: Present: supple, normal ROM - Respiratory Respiratory effort: normal Respiratory: bilateral: diminished, negative: rales, rhonchi, wheezing - Cardiovascular Rhythm: regular Heart Sounds: Present: S1 & S2 - Extremities Extremities: no ischemia, No edema - Abdominal General gastrointestinal: soft, non-tender, non-distended, absent bowel sounds - Integumentary Integumentary: Present: clear - Psychiatric Psychiatric: appropriate mood/affect - Neurologic Neurologic: moves all extremities Results - Labs CBC & Chem 7: 04/28/19 04:41 04/28/19 04:41 Labs: Laboratory Last Values WBC 11.0 K/mm3 (4.5-11.0) 04/28/19 04:41 RBC 4.74 M/mm3 (3.65-5.03) 04/28/19 04:41 Hgb 13.3 gm/dl (10.1-14.3) 04/28/19 04:41 Hct 39.5 % (30.3-42.9) 04/28/19 04:41 MCV 83 fl (79-97) 04/28/19 04:41 MCH 28 pg (28-32) 04/28/19 04:41 MCHC 34 % (30-34) 04/28/19 04:41 RDW 14.6 % (13.2-15.2) 04/28/19 04:41 Plt Count 220 K/mm3 (140-440) 04/28/19 04:41 Lymph % (Auto) 13.3 % (13.4-35.0) L 04/28/19 04:41 [place] % (Auto) 5.5 % (0.0-7.3) 04/28/19 04:41 Eos % (Auto) 0.0 % (0.0-4.3) 04/28/19 04:41 Baso % (Auto) 0.4 % (0.0-1.8) 04/28/19 04:41 Lymph # 1.5 K/mm3 (1.2-5.4) 04/28/19 04:41 [place] # 0.6 K/mm3 (0.0-0.8) 04/28/19 04:41 Eos # 0.0 K/mm3 (0.0-0.4) 04/28/19 04:41 Baso # 0.0 K/mm3 (0.0-0.1) 04/28/19 04:41 Seg Neutrophils % 80.8 % (40.0-70.0) H 04/28/19 04:41 Seg Neutrophils # 8.9 K/mm3 (1.8-7.7) H 04/28/19 04:41 PT 13.0 Sec. (12.2-14.9) 04/26/19 18:15 INR 1.01 (0.87-1.13) 04/26/19 18:15 APTT 31.8 Sec. (24.2-36.6) 04/26/19 18:15 Sodium 132 mmol/L (137-145) L 04/28/19 04:41 Potassium 3.5 mmol/L (3.6-5.0) L D 04/28/19 04:41 Chloride 99.8 mmol/L (98-107) 04/28/19 04:41 Carbon Dioxide 21 mmol/L (22-30) L 04/28/19 04:41 Anion Gap 15 mmol/L 04/28/19 04:41 BUN 10 mg/dL (7-17) 04/28/19 04:41 Creatinine 0.8 mg/dL (0.7-1.2) 04/28/19 04:41 Estimated GFR > 60 ml/min 04/28/19 04:41 BUN/Creatinine Ratio 13 % 04/28/19 04:41 Glucose 132 mg/dL (65-100) H 04/28/19 04:41 Calcium 9.1 mg/dL (8.4-10.2) 04/28/19 04:41 Magnesium 1.70 mg/dL (1.7-2.3) 04/28/19 04:41 Total Bilirubin 0.60 mg/dL (0.1-1.2) 04/27/19 04:57 AST 16 units/L (5-40) 04/27/19 04:57 ALT 6 units/L (7-56) L 04/27/19 04:57 Alkaline Phosphatase 40 units/L (35-129) 04/27/19 04:57 Troponin T < 0.010 ng/mL (0.00-0.029) 04/26/19 11:43 Total Protein 7.0 g/dL (6.3-8.2) 04/27/19 04:57 Albumin 3.5 g/dL (3.9-5) L 04/27/19 04:57 Albumin/Globulin Ratio 1.0 % 04/27/19 04:57 Lipase 25 units/L (13-60) 04/26/19 11:43 Urine Color Straw (Yellow) 04/26/19 11:39 Urine Turbidity Clear (Clear) 04/26/19 11:39 Urine pH 8.0 (5.0-7.0) H 04/26/19 11:39 Ur Specific [place] 1.012 (1.003-1.030) 04/26/19 11:39 Urine Protein <15 mg/dl mg/dL (Negative) 04/26/19 11:39 Urine Glucose (UA) Neg mg/dL (Negative) 04/26/19 11:39 Urine Ketones Neg mg/dL (Negative) 04/26/19 11:39 Urine Blood Neg (Negative) 04/26/19 11:39 Urine Nitrite Neg (Negative) 04/26/19 11:39 Urine Bilirubin Neg (Negative) 04/26/19 11:39 Urine Urobilinogen < 2.0 mg/dL (<2.0) 04/26/19 11:39 Ur Leukocyte Esterase Sm (Negative) 04/26/19 11:39 Urine WBC (Auto) 2.0 /HPF (0.0-6.0) 04/26/19 11:39 Urine RBC (Auto) 2.0 /HPF (0.0-6.0) 04/26/19 11:39 U Epithel Cells (Auto) < 1.0 /HPF (0-13.0) 04/26/19 11:39 Urine Mucus Few /HPF 04/26/19 11:39 Blood Type A POSITIVE 04/26/19 Unknown Antibody Screen Negative 04/26/19 Unknown Active Medications - Current Medications Current Medications: Generic Name Dose Route Start Last Admin Trade Name Freq PRN Reason Stop Dose Admin Acetaminophen 650 mg 04/26/19 17:44 Tylenol PO Q4H PRN Pain MILD(1-3)/Fever >100.5/MARTIN Albuterol 2.5 mg 04/26/19 17:44 Proventil IH Q4HRT PRN Shortness Of Breath Donepezil HCl 5 mg 04/26/19 22:00 04/27/19 22:00 Aricept PO Not Given QHS KARLY Famotidine 20 mg 04/26/19 22:00 04/27/19 21:14 Pepcid IV 20 mg BID KARLY Administration Haloperidol 1 mg 04/27/19 17:57 Haldol PO Q6H PRN Agitation Haloperidol Lactate 5 mg 04/27/19 18:52 04/28/19 03:12 Haldol IM 5 mg Q6H PRN Administration Agitation Hydralazine HCl 10 mg 04/27/19 20:02 04/28/19 03:12 Apresoline IV 10 mg Q6H PRN Administration HTN Potassium Chloride/Dextrose/Sod Cl 20 meq in 1,000 mls @ 100 mls/hr 04/26/19 22:00 04/27/19 23:30 D5w/0.45% Nacl/Kcl 20 Meq IV 100 mls/hr DIRECT KARLY Administration Morphine Sulfate 4 mg 04/26/19 21:12 04/27/19 03:54 Morphine IV 4 mg Q4H PRN Administration Pain , Severe (7-10) Ondansetron HCl 4 mg 04/26/19 21:12 Zofran IV Q4H PRN N/V unrelieved by Ronel Phenol 1 spray 04/27/19 14:21 04/27/19 21:59 Chloraseptic MM 1 spray PRN PRN Administration Sore Throat Sodium Chloride 10 ml 04/26/19 22:00 04/27/19 21:15 Sodium Chloride Flush Syringe 10 Ml IV 10 ml BID KARLY Administration Sodium Chloride 10 ml 04/26/19 17:44 Sodium Chloride Flush Syringe 10 Ml IV PRN PRN LINE FLUSH
[2019-04-28] MEDS: FAMOTIDINE 20 MG/2 ML INJ IV SCH ×2 (09:20→22:38)
[2019-04-28] MEDS: POTASSIUM CHLORIDE 10 MEQ 10 MEQ/100 ML BAG IV SCH ×2 (10:26→12:11)
[2019-04-28] MEDS: D5W/0.45% NACL/KCL 20 MEQ 20 MEQ/1,000 ML BAG IV SCH ×2 (10:27→21:15)
--- NOTE | 2019-04-28 10:40 | Progress Note ---
Assessment and Plan POD # 2 Pt had episode of disorientation yest pm and pulled her ng & IV. Started on Haldol. doing much better this am. no complaints. neg flatus Abd soft, non tender. dressings dry. neg BS stable OOB as radha with PT continue present care Selected Entries 04/28/19 04/28/19 04/28/19 04:00 04:31 07:00 Temperature 98.8 F Pulse Rate 86 Respiratory 20 Rate Blood Pressure 162/71 Laboratory Tests 04/28/19 04/28/19 04:41 04:41 WBC 11.0 Hgb 13.3 Hct 39.5 Sodium 132 L Potassium 3.5 L D Chloride 99.8 Carbon Dioxide 21 L Objective Vital Signs - 12hr 04/27/19 04/27/19 04/27/19 23:01 23:04 23:30 Temperature Pulse Rate 72 80 75 Respiratory 15 18 Rate Blood Pressure 170/69 167/73 O2 Sat by Pulse 97 98 Oximetry 04/28/19 04/28/19 04/28/19 00:00 00:01 00:31 Temperature 98.9 F Pulse Rate 87 84 Respiratory 22 14 Rate Blood Pressure 164/70 O2 Sat by Pulse 98 96 Oximetry 04/28/19 04/28/19 04/28/19 01:00 01:30 02:00 Temperature Pulse Rate 73 69 77 Respiratory 22 19 22 Rate Blood Pressure 166/71 161/78 O2 Sat by Pulse 97 98 97 Oximetry 04/28/19 04/28/19 04/28/19 02:30 03:00 03:12 Temperature Pulse Rate 83 95 H 97 H Respiratory 18 17 Rate Blood Pressure 175/76 182/77 182/77 O2 Sat by Pulse 95 98 Oximetry 04/28/19 04/28/19 04/28/19 03:31 03:59 04:00 Temperature 98.8 F Pulse Rate 96 H 76 Respiratory 14 Rate Blood Pressure 162/71 O2 Sat by Pulse 91 Oximetry 04/28/19 04/28/19 04/28/19 04:01 04:31 05:01 Temperature Pulse Rate 89 99 H 92 H Respiratory 14 20 18 Rate Blood Pressure 172/61 162/71 154/67 O2 Sat by Pulse 97 97 96 Oximetry 04/28/19 04/28/19 04/28/19 05:31 06:01 06:30 Temperature Pulse Rate 91 H 101 H 75 Respiratory 13 14 19 Rate Blood Pressure 166/71 184/80 154/77 O2 Sat by Pulse 94 94 93 Oximetry 04/28/19 07:00 Temperature Pulse Rate 86 Respiratory 22 Rate Blood Pressure 161/71 O2 Sat by Pulse 95 Oximetry - Labs 04/28/19 04:41 04/28/19 04:41 Diabetes panel 04/28/19 Range/Units 04:41 Sodium 132 L (137-145) mmol/L Potassium 3.5 L D (3.6-5.0) mmol/L Chloride 99.8 (98-107) mmol/L Carbon Dioxide 21 L (22-30) mmol/L BUN 10 (7-17) mg/dL Creatinine 0.8 (0.7-1.2) mg/dL Glucose 132 H (65-100) mg/dL Calcium 9.1 (8.4-10.2) mg/dL Calcium panel 04/28/19 Range/Units 04:41 Calcium 9.1 (8.4-10.2) mg/dL Pituitary panel 04/28/19 Range/Units 04:41 Sodium 132 L (137-145) mmol/L Potassium 3.5 L D (3.6-5.0) mmol/L Chloride 99.8 (98-107) mmol/L Carbon Dioxide 21 L (22-30) mmol/L BUN 10 (7-17) mg/dL Creatinine 0.8 (0.7-1.2) mg/dL Glucose 132 H (65-100) mg/dL Calcium 9.1 (8.4-10.2) mg/dL Adrenal panel 04/28/19 Range/Units 04:41 Sodium 132 L (137-145) mmol/L Potassium 3.5 L D (3.6-5.0) mmol/L Chloride 99.8 (98-107) mmol/L Carbon Dioxide 21 L (22-30) mmol/L BUN 10 (7-17) mg/dL Creatinine 0.8 (0.7-1.2) mg/dL Glucose 132 H (65-100) mg/dL Calcium 9.1 (8.4-10.2) mg/dL
[2019-04-28] MEDS: DONEPEZIL 5 MG TAB PO SCH (22:34)
[2019-04-28] MEDS: MORPHINE 4 MG/1 ML INJ IV PRN (22:38)
[2019-04-29] MEDS: HALOPERIDOL LACTATE 5 MG/1 ML INJ IM PRN (00:27)
[2019-04-29] MEDS: MORPHINE 4 MG/1 ML INJ IV PRN (03:18)
[2019-04-29] MEDS: FAMOTIDINE 20 MG/2 ML INJ IV SCH ×2 (09:48→22:27)
--- NOTE | 2019-04-29 09:51 | Progress Note ---
Assessment and Plan POD # 3 Pt sitting in chair. ambulated some down halls with assistance. no complaints. neg flatus Abd soft, non tender. neg BS surgically stable continue present care Selected Entries 04/29/19 04/29/19 08:00 08:30 Temperature 98.1 F Pulse Rate 91 H Respiratory 18 Rate Blood Pressure 211/113 Laboratory Tests 04/28/19 04:41 WBC 11.0 Hgb 13.3 Hct 39.5 Objective Vital Signs - 12hr 04/28/19 04/28/19 04/28/19 22:01 22:30 22:49 Temperature Pulse Rate 112 H 135 H 125 H Pulse Rate [ From Monitor] Respiratory 16 15 27 H Rate Blood Pressure 177/118 177/118 177/118 O2 Sat by Pulse 96 95 97 Oximetry 04/28/19 04/28/19 04/29/19 23:01 23:31 00:00 Temperature Pulse Rate 125 H 123 H 127 H Pulse Rate [ 128 H From Monitor] Respiratory 17 22 21 Rate Blood Pressure 177/118 176/80 167/89 O2 Sat by Pulse 94 96 96 Oximetry 04/29/19 04/29/19 04/29/19 00:31 01:01 01:31 Temperature Pulse Rate 114 H 121 H 136 H Pulse Rate [ From Monitor] Respiratory 14 25 H 14 Rate Blood Pressure 167/89 183/86 183/86 O2 Sat by Pulse 97 96 87 Oximetry 04/29/19 04/29/19 04/29/19 02:00 02:31 03:01 Temperature Pulse Rate 114 H 114 H 129 H Pulse Rate [ From Monitor] Respiratory 26 H 17 16 Rate Blood Pressure 151/78 151/78 169/104 O2 Sat by Pulse Oximetry 04/29/19 04/29/19 04/29/19 03:31 04:00 04:30 Temperature Pulse Rate 124 H 117 H 125 H Pulse Rate [ 122 H From Monitor] Respiratory 14 21 16 Rate Blood Pressure 169/104 176/95 O2 Sat by Pulse 96 Oximetry 04/29/19 04/29/19 04/29/19 05:00 05:30 06:00 Temperature Pulse Rate 116 H 84 91 H Pulse Rate [ From Monitor] Respiratory 20 20 22 Rate Blood Pressure 177/94 177/94 158/77 O2 Sat by Pulse Oximetry 04/29/19 04/29/19 04/29/19 06:30 07:00 07:38 Temperature Pulse Rate 81 132 H 121 H Pulse Rate [ From Monitor] Respiratory 17 24 15 Rate Blood Pressure 158/77 158/77 211/113 O2 Sat by Pulse Oximetry 04/29/19 04/29/19 08:00 08:30 Temperature 98.1 F Pulse Rate 93 H 91 H Pulse Rate [ 93 H From Monitor] Respiratory 15 18 Rate Blood Pressure 111/61 211/113 O2 Sat by Pulse 89 88 Oximetry - Labs 04/28/19 04:41 04/28/19 04:41
--- NOTE | 2019-04-29 10:29 | Progress Note ---
Assessment and Plan Assessment and plan: --Hypokalemia: Replace with IV Kcl and monitor levels --Small bowel obstruction; Status post exploratory laparotomy lysis of additions and lysis of thick omental band causing internal volvulus Postop care per surgery, no flatus, continue NG tube, nothing by mouth Supportive care --Hyponatremia; continue IV fluid mild improvement Mild improvement --Leukocytosis; resolved --Dementia; supportive care --History of hypertension; moderate controlled Continue current antihypertensives and when necessary medications --DVT prophylaxis; SCDs --PT increase ambulation as tolerated --Full code Monitor clinically and adjust management as needed Plan of care reviewed with the patient family member at the bedside and the nurse Critical care time 31 minutes History Interval history: Patient seen and examined medical records reviewed Patient is in mild distress, NG tube in place Did not have flatus, nothing by mouth status Surgery following Family and the bedside Vital signs noted Hospitalist Physical - Constitutional Vitals: Temp Pulse Resp BP Pulse Ox 98.1 F 91 H 18 211/113 88 04/29/19 08:00 04/29/19 08:30 04/29/19 08:30 04/29/19 08:30 04/29/19 08:30 General appearance: Present: no acute distress, well-nourished - EENT Eyes: Present: PERRL, EOM intact - Neck Neck: Present: supple, normal ROM - Respiratory Respiratory effort: normal Respiratory: bilateral: diminished, negative: rales, rhonchi, wheezing - Cardiovascular Rhythm: regular Heart Sounds: Present: S1 & S2 - Extremities Extremities: no ischemia, No edema - Abdominal General gastrointestinal: soft, non-tender, non-distended, absent bowel sounds - Integumentary Integumentary: Present: clear, warm - Psychiatric Psychiatric: cooperative, other (confused at times) - Neurologic Neurologic: moves all extremities Results - Labs CBC & Chem 7: 04/28/19 04:41 04/29/19 14:39 Labs: Laboratory Last Values WBC 11.0 K/mm3 (4.5-11.0) 04/28/19 04:41 RBC 4.74 M/mm3 (3.65-5.03) 04/28/19 04:41 Hgb 13.3 gm/dl (10.1-14.3) 04/28/19 04:41 Hct 39.5 % (30.3-42.9) 04/28/19 04:41 MCV 83 fl (79-97) 04/28/19 04:41 MCH 28 pg (28-32) 04/28/19 04:41 MCHC 34 % (30-34) 04/28/19 04:41 RDW 14.6 % (13.2-15.2) 04/28/19 04:41 Plt Count 220 K/mm3 (140-440) 04/28/19 04:41 Lymph % (Auto) 13.3 % (13.4-35.0) L 04/28/19 04:41 [place] % (Auto) 5.5 % (0.0-7.3) 04/28/19 04:41 Eos % (Auto) 0.0 % (0.0-4.3) 04/28/19 04:41 Baso % (Auto) 0.4 % (0.0-1.8) 04/28/19 04:41 Lymph # 1.5 K/mm3 (1.2-5.4) 04/28/19 04:41 [place] # 0.6 K/mm3 (0.0-0.8) 04/28/19 04:41 Eos # 0.0 K/mm3 (0.0-0.4) 04/28/19 04:41 Baso # 0.0 K/mm3 (0.0-0.1) 04/28/19 04:41 Seg Neutrophils % 80.8 % (40.0-70.0) H 04/28/19 04:41 Seg Neutrophils # 8.9 K/mm3 (1.8-7.7) H 04/28/19 04:41 PT 13.0 Sec. (12.2-14.9) 04/26/19 18:15 INR 1.01 (0.87-1.13) 04/26/19 18:15 APTT 31.8 Sec. (24.2-36.6) 04/26/19 18:15 Sodium 132 mmol/L (137-145) L 04/28/19 04:41 Potassium 3.5 mmol/L (3.6-5.0) L D 04/28/19 04:41 Chloride 99.8 mmol/L (98-107) 04/28/19 04:41 Carbon Dioxide 21 mmol/L (22-30) L 04/28/19 04:41 Anion Gap 15 mmol/L 04/28/19 04:41 BUN 10 mg/dL (7-17) 04/28/19 04:41 Creatinine 0.8 mg/dL (0.7-1.2) 04/28/19 04:41 Estimated GFR > 60 ml/min 04/28/19 04:41 BUN/Creatinine Ratio 13 % 04/28/19 04:41 Glucose 132 mg/dL (65-100) H 04/28/19 04:41 Calcium 9.1 mg/dL (8.4-10.2) 04/28/19 04:41 Magnesium 1.70 mg/dL (1.7-2.3) 04/28/19 04:41 Total Bilirubin 0.60 mg/dL (0.1-1.2) 04/27/19 04:57 AST 16 units/L (5-40) 04/27/19 04:57 ALT 6 units/L (7-56) L 04/27/19 04:57 Alkaline Phosphatase 40 units/L (35-129) 04/27/19 04:57 Troponin T < 0.010 ng/mL (0.00-0.029) 04/26/19 11:43 Total Protein 7.0 g/dL (6.3-8.2) 04/27/19 04:57 Albumin 3.5 g/dL (3.9-5) L 04/27/19 04:57 Albumin/Globulin Ratio 1.0 % 04/27/19 04:57 Lipase 25 units/L (13-60) 04/26/19 11:43 Urine Color Straw (Yellow) 04/26/19 11:39 Urine Turbidity Clear (Clear) 04/26/19 11:39 Urine pH 8.0 (5.0-7.0) H 04/26/19 11:39 Ur Specific [place] 1.012 (1.003-1.030) 04/26/19 11:39 Urine Protein <15 mg/dl mg/dL (Negative) 04/26/19 11:39 Urine Glucose (UA) Neg mg/dL (Negative) 04/26/19 11:39 Urine Ketones Neg mg/dL (Negative) 04/26/19 11:39 Urine Blood Neg (Negative) 04/26/19 11:39 Urine Nitrite Neg (Negative) 04/26/19 11:39 Urine Bilirubin Neg (Negative) 04/26/19 11:39 Urine Urobilinogen < 2.0 mg/dL (<2.0) 04/26/19 11:39 Ur Leukocyte Esterase Sm (Negative) 04/26/19 11:39 Urine WBC (Auto) 2.0 /HPF (0.0-6.0) 04/26/19 11:39 Urine RBC (Auto) 2.0 /HPF (0.0-6.0) 04/26/19 11:39 U Epithel Cells (Auto) < 1.0 /HPF (0-13.0) 04/26/19 11:39 Urine Mucus Few /HPF 04/26/19 11:39 Blood Type A POSITIVE 04/26/19 Unknown Antibody Screen Negative 04/26/19 Unknown Active Medications - Current Medications Current Medications: Generic Name Dose Route Start Last Admin Trade Name Freq PRN Reason Stop Dose Admin Acetaminophen 650 mg 04/26/19 17:44 Tylenol PO Q4H PRN Pain MILD(1-3)/Fever >100.5/MARTIN Albuterol 2.5 mg 04/26/19 17:44 Proventil IH Q4HRT PRN Shortness Of Breath Donepezil HCl 5 mg 04/26/19 22:00 04/28/19 22:34 Aricept PO Not Given QHS KARLY Famotidine 20 mg 04/26/19 22:00 04/29/19 09:48 Pepcid IV 20 mg BID KARLY Administration Haloperidol 1 mg 04/27/19 17:57 Haldol PO Q6H PRN Agitation Haloperidol Lactate 5 mg 04/27/19 18:52 04/29/19 00:27 Haldol IM 5 mg Q6H PRN Administration Agitation Hydralazine HCl 10 mg 04/27/19 20:02 04/28/19 03:12 Apresoline IV 10 mg Q6H PRN Administration HTN Hydralazine HCl 10 mg 04/29/19 11:00 Apresoline IV Q8H KARLY Potassium Chloride/Dextrose/Sod Cl 20 meq in 1,000 mls @ 100 mls/hr 04/26/19 22:00 04/28/19 21:15 D5w/0.45% Nacl/Kcl 20 Meq IV 100 mls/hr DIRECT KARLY Administration Morphine Sulfate 4 mg 04/26/19 21:12 04/29/19 03:18 Morphine IV 4 mg Q4H PRN Administration Pain , Severe (7-10) Ondansetron HCl 4 mg 04/26/19 21:12 Zofran IV Q4H PRN N/V unrelieved by [place] Phenol 1 spray 04/27/19 14:21 04/27/19 21:59 Chloraseptic MM 1 spray PRN PRN Administration Sore Throat Sodium Chloride 10 ml 04/26/19 22:00 04/29/19 09:49 Sodium Chloride Flush Syringe 10 Ml IV 10 ml BID KARLY Administration Sodium Chloride 10 ml 04/26/19 17:44 Sodium Chloride Flush Syringe 10 Ml IV PRN PRN LINE FLUSH
[2019-04-29] MEDS: hydrALAZINE 20 MG/1 ML INJ IV SCH ×2 (11:30→19:44)
[2019-04-29] MEDS: D5W/0.45% NACL/KCL 20 MEQ 20 MEQ/1,000 ML BAG IV SCH (18:09)
[2019-04-29] MEDS: DONEPEZIL 5 MG TAB PO SCH (22:28)
[2019-04-30] MEDS: MORPHINE 4 MG/1 ML INJ IV PRN (02:48)
[2019-04-30] MEDS: hydrALAZINE 20 MG/1 ML INJ IV SCH ×3 (02:48→19:31)
[2019-04-30] MEDS: D5W/0.45% NACL/KCL 20 MEQ 20 MEQ/1,000 ML BAG IV SCH ×3 (02:49→22:26)
[2019-04-30] MEDS: FAMOTIDINE 20 MG/2 ML INJ IV SCH ×2 (09:12→22:24)
--- NOTE | 2019-04-30 10:21 | Progress Note ---
Assessment and Plan POD # 4 Pt feeling well. ambulated down halls. + flatus Abd soft, non tender. hypoactive BS surgically stable d/c ng begin ice chips, popsicles and po meds Selected Entries 04/30/19 08:00 Temperature 98.1 F Pulse Rate 69 Respiratory 20 Rate Blood Pressure 176/79 Objective Vital Signs - 12hr 04/29/19 04/30/19 04/30/19 23:00 00:00 00:02 Temperature Pulse Rate 102 H 100 H 86 Pulse Rate [ From Monitor] Respiratory 22 28 H 24 Rate Blood Pressure 173/99 159/98 159/98 O2 Sat by Pulse 95 97 96 Oximetry 04/30/19 04/30/19 04/30/19 00:03 00:37 01:00 Temperature 98.7 F Pulse Rate 76 Pulse Rate [ 103 H From Monitor] Respiratory 20 20 Rate Blood Pressure 156/76 O2 Sat by Pulse 96 92 Oximetry 04/30/19 04/30/19 04/30/19 02:00 02:48 03:00 Temperature Pulse Rate 76 91 H 80 Pulse Rate [ From Monitor] Respiratory 20 21 Rate Blood Pressure 174/75 203/90 155/65 O2 Sat by Pulse 96 95 Oximetry 04/30/19 04/30/19 04/30/19 04:00 05:00 06:00 Temperature 99.4 F Pulse Rate 88 78 76 Pulse Rate [ 98 H From Monitor] Respiratory 22 17 21 Rate Blood Pressure 166/70 148/73 158/70 O2 Sat by Pulse 95 96 96 Oximetry 04/30/19 04/30/19 07:00 08:00 Temperature 98.1 F Pulse Rate 117 H 69 Pulse Rate [ From Monitor] Respiratory 16 20 Rate Blood Pressure 158/70 176/79 O2 Sat by Pulse 97 96 Oximetry - Labs 04/28/19 04:41 04/29/19 14:39 Diabetes panel 04/29/19 Range/Units 14:39 Potassium 3.8 (3.6-5.0) mmol/L Pituitary panel 04/29/19 Range/Units 14:39 Potassium 3.8 (3.6-5.0) mmol/L Adrenal panel 04/29/19 Range/Units 14:39 Potassium 3.8 (3.6-5.0) mmol/L
--- NOTE | 2019-04-30 13:17 | Progress Note ---
Assessment and Plan Assessment and plan: --Hypokalemia: Replace with IV Kcl and monitor levels --Small bowel obstruction; Status post exploratory laparotomy lysis of additions and lysis of thick omental band causing internal volvulus DC NG tube , surgery recommended ice chips by mouth meds Advance the diet as tolerated Ambulate as tolerated --Hyponatremia; continue IV fluid mild improvement Mild improvement --Leukocytosis; resolved --Dementia; supportive care --History of hypertension; moderate controlled Continue current antihypertensives and when necessary medications --DVT prophylaxis; SCDs --PT increase ambulation as tolerated --Full code Monitor clinically and adjust management as needed Plan of care reviewed with the patient family member at the bedside and the nurse Critical care time 31 minutes History Interval history: Patient seen and examined and medical records reviewed Patient had flatus, feels better NG tube will be discontinued Denies nausea vomiting or abdominal pain Vital signs noted Hospitalist Physical - Constitutional Vitals: Temp Pulse Resp BP Pulse Ox 98.2 F 86 20 173/86 96 04/30/19 12:00 04/30/19 11:28 04/30/19 08:00 04/30/19 11:28 04/30/19 08:00 General appearance: Present: no acute distress, well-nourished - EENT Eyes: Present: PERRL, EOM intact - Neck Neck: Present: supple, normal ROM - Respiratory Respiratory effort: normal Respiratory: bilateral: diminished, negative: rales, rhonchi, wheezing - Cardiovascular Rhythm: regular Heart Sounds: Present: S1 & S2 - Extremities Extremities: no ischemia, No edema - Abdominal General gastrointestinal: soft, non-tender, non-distended, hypoactive bowel sounds - Integumentary Integumentary: Present: clear, warm - Psychiatric Psychiatric: appropriate mood/affect, cooperative - Neurologic Neurologic: CNII-XII intact, moves all extremities Results - Labs CBC & Chem 7: 04/28/19 04:41 04/29/19 14:39 Labs: Laboratory Last Values WBC 11.0 K/mm3 (4.5-11.0) 04/28/19 04:41 RBC 4.74 M/mm3 (3.65-5.03) 04/28/19 04:41 Hgb 13.3 gm/dl (10.1-14.3) 04/28/19 04:41 Hct 39.5 % (30.3-42.9) 04/28/19 04:41 MCV 83 fl (79-97) 04/28/19 04:41 MCH 28 pg (28-32) 04/28/19 04:41 MCHC 34 % (30-34) 04/28/19 04:41 RDW 14.6 % (13.2-15.2) 04/28/19 04:41 Plt Count 220 K/mm3 (140-440) 04/28/19 04:41 Lymph % (Auto) 13.3 % (13.4-35.0) L 04/28/19 04:41 [place] % (Auto) 5.5 % (0.0-7.3) 04/28/19 04:41 Eos % (Auto) 0.0 % (0.0-4.3) 04/28/19 04:41 Baso % (Auto) 0.4 % (0.0-1.8) 04/28/19 04:41 Lymph # 1.5 K/mm3 (1.2-5.4) 04/28/19 04:41 [place] # 0.6 K/mm3 (0.0-0.8) 04/28/19 04:41 Eos # 0.0 K/mm3 (0.0-0.4) 04/28/19 04:41 Baso # 0.0 K/mm3 (0.0-0.1) 04/28/19 04:41 Seg Neutrophils % 80.8 % (40.0-70.0) H 04/28/19 04:41 Seg Neutrophils # 8.9 K/mm3 (1.8-7.7) H 04/28/19 04:41 PT 13.0 Sec. (12.2-14.9) 04/26/19 18:15 INR 1.01 (0.87-1.13) 04/26/19 18:15 APTT 31.8 Sec. (24.2-36.6) 04/26/19 18:15 Sodium 132 mmol/L (137-145) L 04/28/19 04:41 Potassium 3.8 mmol/L (3.6-5.0) 04/29/19 14:39 Chloride 99.8 mmol/L (98-107) 04/28/19 04:41 Carbon Dioxide 21 mmol/L (22-30) L 04/28/19 04:41 Anion Gap 15 mmol/L 04/28/19 04:41 BUN 10 mg/dL (7-17) 04/28/19 04:41 Creatinine 0.8 mg/dL (0.7-1.2) 04/28/19 04:41 Estimated GFR > 60 ml/min 04/28/19 04:41 BUN/Creatinine Ratio 13 % 04/28/19 04:41 Glucose 132 mg/dL (65-100) H 04/28/19 04:41 Calcium 9.1 mg/dL (8.4-10.2) 04/28/19 04:41 Magnesium 1.80 mg/dL (1.7-2.3) 04/29/19 14:39 Total Bilirubin 0.60 mg/dL (0.1-1.2) 04/27/19 04:57 AST 16 units/L (5-40) 04/27/19 04:57 ALT 6 units/L (7-56) L 04/27/19 04:57 Alkaline Phosphatase 40 units/L (35-129) 04/27/19 04:57 Troponin T < 0.010 ng/mL (0.00-0.029) 04/26/19 11:43 Total Protein 7.0 g/dL (6.3-8.2) 04/27/19 04:57 Albumin 3.5 g/dL (3.9-5) L 04/27/19 04:57 Albumin/Globulin Ratio 1.0 % 04/27/19 04:57 Lipase 25 units/L (13-60) 04/26/19 11:43 Urine Color Straw (Yellow) 04/26/19 11:39 Urine Turbidity Clear (Clear) 04/26/19 11:39 Urine pH 8.0 (5.0-7.0) H 04/26/19 11:39 Ur Specific [place] 1.012 (1.003-1.030) 04/26/19 11:39 Urine Protein <15 mg/dl mg/dL (Negative) 04/26/19 11:39 Urine Glucose (UA) Neg mg/dL (Negative) 04/26/19 11:39 Urine Ketones Neg mg/dL (Negative) 04/26/19 11:39 Urine Blood Neg (Negative) 04/26/19 11:39 Urine Nitrite Neg (Negative) 04/26/19 11:39 Urine Bilirubin Neg (Negative) 04/26/19 11:39 Urine Urobilinogen < 2.0 mg/dL (<2.0) 04/26/19 11:39 Ur Leukocyte Esterase Sm (Negative) 04/26/19 11:39 Urine WBC (Auto) 2.0 /HPF (0.0-6.0) 04/26/19 11:39 Urine RBC (Auto) 2.0 /HPF (0.0-6.0) 04/26/19 11:39 U Epithel Cells (Auto) < 1.0 /HPF (0-13.0) 04/26/19 11:39 Urine Mucus Few /HPF 04/26/19 11:39 Blood Type A POSITIVE 04/26/19 Unknown Antibody Screen Negative 04/26/19 Unknown Active Medications - Current Medications Current Medications: Generic Name Dose Route Start Last Admin Trade Name Freq PRN Reason Stop Dose Admin Acetaminophen 650 mg 04/26/19 17:44 Tylenol PO Q4H PRN Pain MILD(1-3)/Fever >100.5/MARTIN Albuterol 2.5 mg 04/26/19 17:44 Proventil IH Q4HRT PRN Shortness Of Breath Donepezil HCl 5 mg 04/26/19 22:00 04/29/19 22:28 Aricept PO Not Given QHS KARLY Famotidine 20 mg 04/26/19 22:00 04/30/19 09:12 Pepcid IV 20 mg BID KARLY Administration Haloperidol 1 mg 04/27/19 17:57 Haldol PO Q6H PRN Agitation Haloperidol Lactate 5 mg 04/27/19 18:52 04/29/19 00:27 Haldol IM 5 mg Q6H PRN Administration Agitation Hydralazine HCl 10 mg 04/27/19 20:02 04/28/19 03:12 Apresoline IV 10 mg Q6H PRN Administration HTN Hydralazine HCl 10 mg 04/29/19 11:00 04/30/19 11:28 Apresoline IV 10 mg Q8H KARLY Administration Potassium Chloride/Dextrose/Sod Cl 20 meq in 1,000 mls @ 100 mls/hr 04/26/19 22:00 04/30/19 12:38 D5w/0.45% Nacl/Kcl 20 Meq IV 100 mls/hr DIRECT KARLY Administration Morphine Sulfate 4 mg 04/26/19 21:12 04/30/19 02:48 Morphine IV 4 mg Q4H PRN Administration Pain , Severe (7-10) Ondansetron HCl 4 mg 04/26/19 21:12 Zofran IV Q4H PRN N/V unrelieved by [place]mad[place] Phenol 1 spray 04/27/19 14:21 04/27/19 21:59 Chloraseptic MM 1 spray PRN PRN Administration Sore Throat Sodium Chloride 10 ml 04/26/19 22:00 04/30/19 09:12 Sodium Chloride Flush Syringe 10 Ml IV 10 ml BID KARLY Administration Sodium Chloride 10 ml 04/26/19 17:44 Sodium Chloride Flush Syringe 10 Ml IV PRN PRN LINE FLUSH
[2019-04-30] MEDS: DONEPEZIL 5 MG TAB PO SCH (22:23)
[2019-05-01] MEDS: hydrALAZINE 20 MG/1 ML INJ IV SCH (03:13)
[2019-05-01 05:39] LABS: BUN/Creatinine Ratio 12; Blood Urea Nitrogen 11 mg/dL (7-17); Calcium 8.8 mg/dL (8.4-10.2); Hemolysis Index 9
[2019-05-01] MEDS: D5W/0.45% NACL/KCL 20 MEQ 20 MEQ/1,000 ML BAG IV SCH ×2 (09:00→18:30)
[2019-05-01] MEDS: atenoloL 50 MG TAB PO SCH (10:25)
[2019-05-01] MEDS: FAMOTIDINE 20 MG TAB PO SCH ×2 (10:25→22:09)
[2019-05-01] MEDS: hydroCHLOROthiazide 12.5 MG CAP PO SCH (10:25)
[2019-05-01] MEDS: LOSARTAN 50 MG TAB PO SCH (10:25)
--- NOTE | 2019-05-01 13:02 | Progress Note ---
Assessment and Plan POD # 5 Pt feeling well. radha d/c of ng without incident Abd soft, non tender surgically stable begin cl liq diet Selected Entries 05/01/19 12:00 Temperature 98.0 F Pulse Rate 55 L Respiratory 20 Rate Blood Pressure 161/69 Objective Vital Signs - 12hr 05/01/19 05/01/19 05/01/19 02:00 03:00 03:13 Temperature Pulse Rate 84 68 81 Pulse Rate [ From Monitor] Respiratory 21 21 Rate Blood Pressure 161/144 178/76 182/80 O2 Sat by Pulse 97 95 Oximetry 05/01/19 05/01/19 05/01/19 04:00 05:00 06:00 Temperature 98.3 F Pulse Rate 80 87 98 H Pulse Rate [ 76 From Monitor] Respiratory 22 21 21 Rate Blood Pressure 184/87 182/76 178/71 O2 Sat by Pulse 98 96 97 Oximetry 05/01/19 05/01/19 05/01/19 07:00 08:00 09:00 Temperature 97.6 F Pulse Rate 67 83 75 Pulse Rate [ 83 From Monitor] Respiratory 21 22 16 Rate Blood Pressure 192/78 179/78 179/78 O2 Sat by Pulse 97 95 97 Oximetry 05/01/19 05/01/19 05/01/19 09:26 10:00 10:25 Temperature Pulse Rate 68 94 H Pulse Rate [ From Monitor] Respiratory 24 Rate Blood Pressure 150/75 150/75 O2 Sat by Pulse 96 95 Oximetry 05/01/19 05/01/19 11:00 12:00 Temperature 98.0 F Pulse Rate 57 L 55 L Pulse Rate [ 55 L From Monitor] Respiratory 24 20 Rate Blood Pressure 150/75 161/69 O2 Sat by Pulse 97 96 Oximetry - Labs 04/28/19 04:41 05/01/19 03:45 Diabetes panel 05/01/19 Range/Units 03:45 Sodium 135 L (137-145) mmol/L Potassium 4.2 (3.6-5.0) mmol/L Chloride 103.2 (98-107) mmol/L Carbon Dioxide 21 L (22-30) mmol/L BUN 11 (7-17) mg/dL Creatinine 0.9 (0.7-1.2) mg/dL Glucose 102 H (65-100) mg/dL Calcium 8.8 (8.4-10.2) mg/dL Calcium panel 05/01/19 Range/Units 03:45 Calcium 8.8 (8.4-10.2) mg/dL Pituitary panel 05/01/19 Range/Units 03:45 Sodium 135 L (137-145) mmol/L Potassium 4.2 (3.6-5.0) mmol/L Chloride 103.2 (98-107) mmol/L Carbon Dioxide 21 L (22-30) mmol/L BUN 11 (7-17) mg/dL Creatinine 0.9 (0.7-1.2) mg/dL Glucose 102 H (65-100) mg/dL Calcium 8.8 (8.4-10.2) mg/dL Adrenal panel 05/01/19 Range/Units 03:45 Sodium 135 L (137-145) mmol/L Potassium 4.2 (3.6-5.0) mmol/L Chloride 103.2 (98-107) mmol/L Carbon Dioxide 21 L (22-30) mmol/L BUN 11 (7-17) mg/dL Creatinine 0.9 (0.7-1.2) mg/dL Glucose 102 H (65-100) mg/dL Calcium 8.8 (8.4-10.2) mg/dL
[2019-05-01] MEDS: hydrALAZINE 25 MG TAB PO SCH ×2 (15:18→22:09)
[2019-05-01] MEDS ORDERED: MORPHINE 4 MG/1 ML INJ IV PRN (16:27)
[2019-05-01] MEDS ORDERED: MORPHINE 2 MG/1 ML INJ IV PRN (16:33)
--- NOTE | 2019-05-01 17:04 | Progress Note ---
Assessment and Plan Assessment and plan: --Hypokalemia: corrected --Hyponatremia; IV fluid mild improvement Closely monitor electrolytes --Small bowel obstruction; Status post exploratory laparotomy lysis of additions and lysis of thick omental band causing internal volvulus DC NG tube , surgery recommended clear liquids and advance as tolerated Increase ambulation --Leukocytosis; resolved --Dementia; supportive care --History of hypertension; moderate controlled Continue current antihypertensives and PRN meds --DVT prophylaxis; SCDs --PT increase ambulation as tolerated --Full code Monitor clinically and adjust management as needed Plan of care reviewed with the patient and the nurse Patient is stable to be Transferred out of the IMCU to medical floor Possible discharge tomorrow if stable History Interval history: Patient seen and examined medical records reviewed Patient feels better ,no new complaints Patient had flatus and no bowel movements Vital signs reviewed Hospitalist Physical - Constitutional Vitals: Temp Pulse Resp BP Pulse Ox 98.0 F 54 L 23 171/79 96 05/01/19 12:00 05/01/19 15:01 05/01/19 15:01 05/01/19 15:18 05/01/19 15:01 General appearance: Present: no acute distress, well-nourished - EENT Eyes: Present: PERRL, EOM intact - Neck Neck: Present: supple, normal ROM - Respiratory Respiratory effort: normal Respiratory: bilateral: diminished, negative: rales, rhonchi, wheezing - Cardiovascular Rhythm: regular Heart Sounds: Present: S1 & S2 - Extremities Extremities: no ischemia, No edema - Abdominal General gastrointestinal: soft, non-tender, non-distended, normal bowel sounds - Integumentary Integumentary: Present: clear, warm - Psychiatric Psychiatric: appropriate mood/affect, cooperative - Neurologic Neurologic: CNII-XII intact, moves all extremities Results - Labs CBC & Chem 7: 04/28/19 04:41 05/01/19 03:45 Labs: Laboratory Last Values WBC 11.0 K/mm3 (4.5-11.0) 04/28/19 04:41 RBC 4.74 M/mm3 (3.65-5.03) 04/28/19 04:41 Hgb 13.3 gm/dl (10.1-14.3) 04/28/19 04:41 Hct 39.5 % (30.3-42.9) 04/28/19 04:41 MCV 83 fl (79-97) 04/28/19 04:41 MCH 28 pg (28-32) 04/28/19 04:41 MCHC 34 % (30-34) 04/28/19 04:41 RDW 14.6 % (13.2-15.2) 04/28/19 04:41 Plt Count 220 K/mm3 (140-440) 04/28/19 04:41 Lymph % (Auto) 13.3 % (13.4-35.0) L 04/28/19 04:41 [place] % (Auto) 5.5 % (0.0-7.3) 04/28/19 04:41 Eos % (Auto) 0.0 % (0.0-4.3) 04/28/19 04:41 Baso % (Auto) 0.4 % (0.0-1.8) 04/28/19 04:41 Lymph # 1.5 K/mm3 (1.2-5.4) 04/28/19 04:41 [place] # 0.6 K/mm3 (0.0-0.8) 04/28/19 04:41 Eos # 0.0 K/mm3 (0.0-0.4) 04/28/19 04:41 Baso # 0.0 K/mm3 (0.0-0.1) 04/28/19 04:41 Seg Neutrophils % 80.8 % (40.0-70.0) H 04/28/19 04:41 Seg Neutrophils # 8.9 K/mm3 (1.8-7.7) H 04/28/19 04:41 PT 13.0 Sec. (12.2-14.9) 04/26/19 18:15 INR 1.01 (0.87-1.13) 04/26/19 18:15 APTT 31.8 Sec. (24.2-36.6) 04/26/19 18:15 Sodium 135 mmol/L (137-145) L 05/01/19 03:45 Potassium 4.2 mmol/L (3.6-5.0) 05/01/19 03:45 Chloride 103.2 mmol/L (98-107) 05/01/19 03:45 Carbon Dioxide 21 mmol/L (22-30) L 05/01/19 03:45 Anion Gap 15 mmol/L 05/01/19 03:45 BUN 11 mg/dL (7-17) 05/01/19 03:45 Creatinine 0.9 mg/dL (0.7-1.2) 05/01/19 03:45 Estimated GFR > 60 ml/min 05/01/19 03:45 BUN/Creatinine Ratio 12 % 05/01/19 03:45 Glucose 102 mg/dL (65-100) H 05/01/19 03:45 Calcium 8.8 mg/dL (8.4-10.2) 05/01/19 03:45 Magnesium 1.90 mg/dL (1.7-2.3) 05/01/19 03:45 Total Bilirubin 0.60 mg/dL (0.1-1.2) 04/27/19 04:57 AST 16 units/L (5-40) 04/27/19 04:57 ALT 6 units/L (7-56) L 04/27/19 04:57 Alkaline Phosphatase 40 units/L (35-129) 04/27/19 04:57 Troponin T < 0.010 ng/mL (0.00-0.029) 04/26/19 11:43 Total Protein 7.0 g/dL (6.3-8.2) 04/27/19 04:57 Albumin 3.5 g/dL (3.9-5) L 04/27/19 04:57 Albumin/Globulin Ratio 1.0 % 04/27/19 04:57 Lipase 25 units/L (13-60) 04/26/19 11:43 Urine Color Straw (Yellow) 04/26/19 11:39 Urine Turbidity Clear (Clear) 04/26/19 11:39 Urine pH 8.0 (5.0-7.0) H 04/26/19 11:39 Ur Specific [place] 1.012 (1.003-1.030) 04/26/19 11:39 Urine Protein <15 mg/dl mg/dL (Negative) 04/26/19 11:39 Urine Glucose (UA) Neg mg/dL (Negative) 04/26/19 11:39 Urine Ketones Neg mg/dL (Negative) 04/26/19 11:39 Urine Blood Neg (Negative) 04/26/19 11:39 Urine Nitrite Neg (Negative) 04/26/19 11:39 Urine Bilirubin Neg (Negative) 04/26/19 11:39 Urine Urobilinogen < 2.0 mg/dL (<2.0) 04/26/19 11:39 Ur Leukocyte Esterase Sm (Negative) 04/26/19 11:39 Urine WBC (Auto) 2.0 /HPF (0.0-6.0) 04/26/19 11:39 Urine RBC (Auto) 2.0 /HPF (0.0-6.0) 04/26/19 11:39 U Epithel Cells (Auto) < 1.0 /HPF (0-13.0) 04/26/19 11:39 Urine Mucus Few /HPF 04/26/19 11:39 Blood Type A POSITIVE 04/26/19 Unknown Antibody Screen Negative 04/26/19 Unknown Active Medications - Current Medications Current Medications: Generic Name Dose Route Start Last Admin Trade Name Freq PRN Reason Stop Dose Admin Acetaminophen 650 mg 04/26/19 17:44 Tylenol PO Q4H PRN Pain MILD(1-3)/Fever >100.5/MARTIN Albuterol 2.5 mg 04/26/19 17:44 Proventil IH Q4HRT PRN Shortness Of Breath Atenolol 50 mg 05/01/19 10:00 05/01/19 10:25 Tenormin PO 50 mg DAILY KARLY Administration Donepezil HCl 5 mg 04/26/19 22:00 04/30/19 22:23 Aricept PO 5 mg QHS KARLY Administration Famotidine 20 mg 05/01/19 10:00 05/01/19 10:25 Pepcid PO 20 mg BID KARLY Administration Haloperidol 1 mg 04/27/19 17:57 Haldol PO Q6H PRN Agitation Haloperidol Lactate 5 mg 04/27/19 18:52 04/29/19 00:27 Haldol IM 5 mg Q6H PRN Administration Agitation Hydralazine HCl 10 mg 04/27/19 20:02 04/28/19 03:12 Apresoline IV 10 mg Q6H PRN Administration HTN Hydralazine HCl 25 mg 05/01/19 14:00 05/01/19 15:18 Apresoline PO 25 mg Q8HR KARLY Administration Hydrochlorothiazide 12.5 mg 05/01/19 10:00 05/01/19 10:25 Hctz PO 12.5 mg QDAY KARLY Administration Potassium Chloride/Dextrose/Sod Cl 20 meq in 1,000 mls @ 100 mls/hr 04/26/19 22:00 05/01/19 09:00 D5w/0.45% Nacl/Kcl 20 Meq IV 100 mls/hr DIRECT KARLY Administration Losartan Potassium 50 mg 05/01/19 10:00 05/01/19 10:25 Cozaar PO 50 mg QDAY KARLY Administration Morphine Sulfate 2 mg 05/01/19 16:33 Morphine IV Q8HR PRN Pain, Moderate (4-6) Ondansetron HCl 4 mg 04/26/19 21:12 Zofran IV Q4H PRN N/V unrelieved by Ronel Phenol 1 spray 04/27/19 14:21 04/27/19 21:59 Chloraseptic MM 1 spray PRN PRN Administration Sore Throat Sodium Chloride 10 ml 04/26/19 22:00 05/01/19 10:26 Sodium Chloride Flush Syringe 10 Ml IV 10 ml BID KARLY Administration Sodium Chloride 10 ml 04/26/19 17:44 Sodium Chloride Flush Syringe 10 Ml IV PRN PRN LINE FLUSH
[2019-05-01] MEDS ORDERED: POLYETHYLENE GLYCOL 3350 17 GM POWDER PO PRN (22:04)
[2019-05-01] MEDS ORDERED: MAGNESIUM HYDROXIDE (MOM) ORAL LIQD UDC PO PRN (22:05)
[2019-05-01] MEDS: DONEPEZIL 5 MG TAB PO SCH (22:09)
[2019-05-01] MEDS ORDERED: MINERAL OIL 30 ML ORAL LIQD PO ONE (22:22)
[2019-05-01] MEDS: DOCUSATE SODIUM 100 MG CAP PO SCH (22:54)
[2019-05-02] MEDS: hydrALAZINE 25 MG TAB PO SCH ×3 (05:22→22:22)
[2019-05-02] MEDS: D5W/0.45% NACL/KCL 20 MEQ 20 MEQ/1,000 ML BAG IV SCH (05:23)
[2019-05-02] MEDS ORDERED: MINERAL OIL 30 ML ORAL LIQD PO ONE (06:00)
[2019-05-02] MEDS: DOCUSATE SODIUM 100 MG CAP PO SCH ×2 (10:05→22:22)
[2019-05-02] MEDS: hydroCHLOROthiazide 12.5 MG CAP PO SCH (10:05)
[2019-05-02] MEDS: atenoloL 50 MG TAB PO SCH (10:05)
[2019-05-02] MEDS: FAMOTIDINE 20 MG TAB PO SCH ×2 (10:06→22:21)
[2019-05-02] MEDS: LOSARTAN 50 MG TAB PO SCH (10:06)
--- NOTE | 2019-05-02 11:50 | Discharge Summary ---
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 Hospitalization Condition: Good Hospital course: --Hypokalemia: corrected --Hyponatremia; IV fluid mild improvement Closely monitor electrolytes --Small bowel obstruction; Status post exploratory laparotomy lysis of additions and lysis of thick omental band causing internal volvulus DC NG tube , surgery recommended clear liquids and advance as tolerated Increase ambulation --Leukocytosis; resolved --Dementia; supportive care --History of hypertension; moderate controlled Continue current antihypertensives and PRN meds --DVT prophylaxis; SCDs --PT increase ambulation as tolerated --Full code Monitor clinically and adjust management as needed Plan of care reviewed with the patient and the nurse Patient is stable to be Transferred out of the IMCU to medical floor Possible discharge tomorrow if stable History Interval history: Patient seen and examined medical records reviewed Patient feels better ,no new complaints Patient had flatus and no bowel movements Vital signs reviewed Hospitalist Physical - Constitutional Vitals: Temp Pulse Resp BP Pulse Ox 98.0 F 54 L 23 171/79 96 05/01/19 12:00 05/01/19 15:01 05/01/19 15:01 05/01/19 15:18 05/01/19 15:01 General appearance: Present: no acute distress, well-nourished - EENT Eyes: Present: PERRL, EOM intact - Neck Neck: Present: supple, normal ROM - Respiratory Respiratory effort: normal Respiratory: bilateral: diminished, negative: rales, rhonchi, wheezing - Cardiovascular Rhythm: regular Heart Sounds: Present: S1 & S2 Disposition: DC-01 TO HOME OR SELFCARE Time spent for discharge: 32 min Core Measure Documentation - Palliative Care Palliative Care/ Comfort Measures: Not Applicable - Core Measures Any of the following diagnoses?: none Exam - Constitutional Vitals: Temp Pulse Resp BP Pulse Ox 98.4 F 59 L 18 138/64 94 05/02/19 08:56 05/02/19 08:56 05/02/19 08:56 05/02/19 08:56 05/02/19 08:56 General appearance: Present: no acute distress, well-nourished - EENT Eyes: Present: PERRL, EOM intact - Neck Neck: Present: supple, normal ROM - Respiratory Respiratory effort: normal Respiratory: bilateral: diminished, negative: rales, rhonchi, wheezing - Cardiovascular Rhythm: regular Heart Sounds: Present: S1 & S2 - Extremities Extremities: no ischemia, No edema - Abdominal General gastrointestinal: Present: soft, non-tender, non-distended, normal bowel sounds - Integumentary Integumentary: Present: clear, warm - Musculoskeletal Musculoskeletal: strength equal bilaterally - Psychiatric Psychiatric: appropriate mood/affect, cooperative - Neurologic Neurologic: moves all extremities Plan Activity: advance as tolerated, fall precautions Diet: other (mechanical soft diet) Special Instructions: physical therapy Additional Instructions: Fall precautions. Patient is a 24/ 7 supervision. Fall precautions. Aspiration precautions Follow up with: PRIMARY CAREMD [Primary Care Provider] - 2-3 Days LINH ALBARRAN MD [Staff Physician] - 7 Days Prescriptions: Docusate Sodium [Colace CAP] 100 mg PO BID PRN #20 capsule PRN Reason: Constipation Famotidine [Pepcid] 20 mg PO BID #30 tablet Ondansetron [Zofran Odt] 4 mg PO Q8HR #12 tab.jules
--- NOTE | 2019-05-02 12:06 | Progress Note ---
Assessment and Plan POD # 6 Pt feeling well without compl Abd soft, non tender stable advance to solid diet may d/c in am from surg perspective if solid diet radha d/c phill and steri strip incision in am prior to d/c rto I wk Objective Vital Signs - 12hr 05/02/19 05/02/19 05/02/19 00:34 05:13 05:22 Temperature 98.5 F 98.8 F Pulse Rate 61 66 Respiratory 20 20 Rate Blood Pressure 166/74 155/66 155/68 Blood Pressure [Right] O2 Sat by Pulse 96 94 Oximetry 05/02/19 05/02/19 07:01 08:56 Temperature 98.4 F 98.4 F Pulse Rate 58 L 59 L Respiratory 18 18 Rate Blood Pressure 138/64 Blood Pressure 138/64 [Right] O2 Sat by Pulse 94 94 Oximetry - Labs 04/28/19 04:41 05/01/19 03:45
[2019-05-02] MEDS: DONEPEZIL 5 MG TAB PO SCH (22:22)
--- NOTE | 2019-05-03 02:52 | Progress Note ---
Assessment and Plan Assessment and plan: --Hypokalemia: corrected --Hyponatremia; IV fluid mild improvement Closely monitor electrolytes --Small bowel obstruction; Status post exploratory laparotomy lysis of additions and lysis of thick omental band causing internal volvulus DC NG tube , surgery recommended clear liquids and advance as tolerated Increase ambulation --Leukocytosis; resolved --Dementia; supportive care --History of hypertension; moderate controlled Continue current antihypertensives and PRN meds --DVT prophylaxis; SCDs --PT increase ambulation as tolerated --Full code Monitor clinically and adjust management as needed Plan of care reviewed with the patient and the nurse Patient is stable to be Transferred out of the IMCU to medical floor Possible discharge tomorrow if stable History Interval history: Patient feels better, no new complaints Vital signs better Hospitalist Physical - Constitutional Vitals: Temp Pulse Resp BP Pulse Ox 98.8 F 56 L 16 122/58 96 05/03/19 00:05 05/03/19 00:05 05/03/19 00:05 05/03/19 00:05 05/03/19 00:05 General appearance: Present: no acute distress, well-nourished - EENT Eyes: Present: PERRL, EOM intact - Neck Neck: Present: supple, normal ROM - Respiratory Respiratory effort: normal Respiratory: bilateral: diminished, negative: rales, rhonchi, wheezing - Cardiovascular Rhythm: regular Heart Sounds: Present: S1 & S2 - Extremities Extremities: no ischemia, pulses intact - Abdominal General gastrointestinal: soft, non-tender, non-distended, normal bowel sounds - Integumentary Integumentary: Present: clear, warm - Psychiatric Psychiatric: appropriate mood/affect, cooperative - Neurologic Neurologic: CNII-XII intact Results - Labs CBC & Chem 7: 04/28/19 04:41 05/01/19 03:45 Labs: Laboratory Last Values WBC 11.0 K/mm3 (4.5-11.0) 04/28/19 04:41 RBC 4.74 M/mm3 (3.65-5.03) 04/28/19 04:41 Hgb 13.3 gm/dl (10.1-14.3) 04/28/19 04:41 Hct 39.5 % (30.3-42.9) 04/28/19 04:41 MCV 83 fl (79-97) 04/28/19 04:41 MCH 28 pg (28-32) 04/28/19 04:41 MCHC 34 % (30-34) 04/28/19 04:41 RDW 14.6 % (13.2-15.2) 04/28/19 04:41 Plt Count 220 K/mm3 (140-440) 04/28/19 04:41 Lymph % (Auto) 13.3 % (13.4-35.0) L 04/28/19 04:41 [place] % (Auto) 5.5 % (0.0-7.3) 04/28/19 04:41 Eos % (Auto) 0.0 % (0.0-4.3) 04/28/19 04:41 Baso % (Auto) 0.4 % (0.0-1.8) 04/28/19 04:41 Lymph # 1.5 K/mm3 (1.2-5.4) 04/28/19 04:41 [place]za # 0.6 K/mm3 (0.0-0.8) 04/28/19 04:41 Eos # 0.0 K/mm3 (0.0-0.4) 04/28/19 04:41 Baso # 0.0 K/mm3 (0.0-0.1) 04/28/19 04:41 Seg Neutrophils % 80.8 % (40.0-70.0) H 04/28/19 04:41 Seg Neutrophils # 8.9 K/mm3 (1.8-7.7) H 04/28/19 04:41 PT 13.0 Sec. (12.2-14.9) 04/26/19 18:15 INR 1.01 (0.87-1.13) 04/26/19 18:15 APTT 31.8 Sec. (24.2-36.6) 04/26/19 18:15 Sodium 135 mmol/L (137-145) L 05/01/19 03:45 Potassium 4.2 mmol/L (3.6-5.0) 05/01/19 03:45 Chloride 103.2 mmol/L (98-107) 05/01/19 03:45 Carbon Dioxide 21 mmol/L (22-30) L 05/01/19 03:45 Anion Gap 15 mmol/L 05/01/19 03:45 BUN 11 mg/dL (7-17) 05/01/19 03:45 Creatinine 0.9 mg/dL (0.7-1.2) 05/01/19 03:45 Estimated GFR > 60 ml/min 05/01/19 03:45 BUN/Creatinine Ratio 12 % 05/01/19 03:45 Glucose 102 mg/dL (65-100) H 05/01/19 03:45 Calcium 8.8 mg/dL (8.4-10.2) 05/01/19 03:45 Magnesium 1.90 mg/dL (1.7-2.3) 05/01/19 03:45 Total Bilirubin 0.60 mg/dL (0.1-1.2) 04/27/19 04:57 AST 16 units/L (5-40) 04/27/19 04:57 ALT 6 units/L (7-56) L 04/27/19 04:57 Alkaline Phosphatase 40 units/L (35-129) 04/27/19 04:57 Troponin T < 0.010 ng/mL (0.00-0.029) 04/26/19 11:43 Total Protein 7.0 g/dL (6.3-8.2) 04/27/19 04:57 Albumin 3.5 g/dL (3.9-5) L 04/27/19 04:57 Albumin/Globulin Ratio 1.0 % 04/27/19 04:57 Lipase 25 units/L (13-60) 04/26/19 11:43 Urine Color Straw (Yellow) 04/26/19 11:39 Urine Turbidity Clear (Clear) 04/26/19 11:39 Urine pH 8.0 (5.0-7.0) H 04/26/19 11:39 Ur Specific [place] 1.012 (1.003-1.030) 04/26/19 11:39 Urine Protein <15 mg/dl mg/dL (Negative) 04/26/19 11:39 Urine Glucose (UA) Neg mg/dL (Negative) 04/26/19 11:39 Urine Ketones Neg mg/dL (Negative) 04/26/19 11:39 Urine Blood Neg (Negative) 04/26/19 11:39 Urine Nitrite Neg (Negative) 04/26/19 11:39 Urine Bilirubin Neg (Negative) 04/26/19 11:39 Urine Urobilinogen < 2.0 mg/dL (<2.0) 04/26/19 11:39 Ur Leukocyte Esterase Sm (Negative) 04/26/19 11:39 Urine WBC (Auto) 2.0 /HPF (0.0-6.0) 04/26/19 11:39 Urine RBC (Auto) 2.0 /HPF (0.0-6.0) 04/26/19 11:39 U Epithel Cells (Auto) < 1.0 /HPF (0-13.0) 04/26/19 11:39 Urine Mucus Few /HPF 04/26/19 11:39 Blood Type A POSITIVE 04/26/19 Unknown Antibody Screen Negative 04/26/19 Unknown Active Medications - Current Medications Current Medications: Generic Name Dose Route Start Last Admin Trade Name Freq PRN Reason Stop Dose Admin Acetaminophen 650 mg 04/26/19 17:44 Tylenol PO Q4H PRN Pain MILD(1-3)/Fever >100.5/MARTIN Albuterol 2.5 mg 04/26/19 17:44 Proventil IH Q4HRT PRN Shortness Of Breath Atenolol 50 mg 05/01/19 10:00 05/02/19 10:05 Tenormin PO 50 mg DAILY KARLY Administration Docusate Sodium 100 mg 05/01/19 23:00 05/02/19 22:22 Colace PO 100 mg BID KARLY Administration Donepezil HCl 5 mg 04/26/19 22:00 05/02/19 22:22 Aricept PO 5 mg QHS KARLY Administration Famotidine 20 mg 05/01/19 10:00 05/02/19 22:21 Pepcid PO 20 mg BID KARLY Administration Haloperidol 1 mg 04/27/19 17:57 Haldol PO Q6H PRN Agitation Haloperidol Lactate 5 mg 04/27/19 18:52 04/29/19 00:27 Haldol IM 5 mg Q6H PRN Administration Agitation Hydralazine HCl 10 mg 04/27/19 20:02 04/28/19 03:12 Apresoline IV 10 mg Q6H PRN Administration HTN Hydralazine HCl 25 mg 05/01/19 14:00 05/02/19 22:22 Apresoline PO 25 mg Q8HR KARLY Administration Hydrochlorothiazide 12.5 mg 05/01/19 10:00 05/02/19 10:05 Hctz PO 12.5 mg QDAY KARLY Administration Potassium Chloride/Dextrose/Sod Cl 20 meq in 1,000 mls @ 100 mls/hr 04/26/19 22:00 05/02/19 05:23 D5w/0.45% Nacl/Kcl 20 Meq IV 100 mls/hr DIRECT KARLY Administration Losartan Potassium 50 mg 05/01/19 10:00 05/02/19 10:06 Cozaar PO 50 mg QDAY KARLY Administration Magnesium Hydroxide 30 ml 05/01/19 22:05 Milk Of Magnesia PO QDAY PRN Congestion Morphine Sulfate 2 mg 05/01/19 16:33 Morphine IV Q8HR PRN Pain, Moderate (4-6) Ondansetron HCl 4 mg 04/26/19 21:12 Zofran IV Q4H PRN N/V unrelieved by Reglan Phenol 1 spray 04/27/19 14:21 04/27/19 21:59 Chloraseptic MM 1 spray PRN PRN Administration Sore Throat Polyethylene Glycol 17 gm 05/01/19 22:04 Miralax 3350 PO QDAY PRN Constipation Sodium Chloride 10 ml 04/26/19 22:00 05/02/19 10:15 Sodium Chloride Flush Syringe 10 Ml IV Not Given BID KARLY Sodium Chloride 10 ml 04/26/19 17:44 Sodium Chloride Flush Syringe 10 Ml IV PRN PRN LINE FLUSH Nutrition/Malnutrition Assess - Dietary Evaluation Nutrition/Malnutrition Findings: Nutrition Notes Start: 05/02/19 11:01 Freq: Status: Active Protocol: Document 05/02/19 11:01 RS (Rec: 05/02/19 12:52 RS [id number]) Co-Sign 05/02/19 11:01 LM Nutrition Notes Need for Assessment generated from: LOS Initial or Follow up Brief Note Other Pertinent Diagnosis SBO, Dementia, Internal Hernia Current Diet Clear liquid Labs/Tests reviewed Pertinent Medications reviewed Height 5 ft 11 in Weight 92.98 kg [place] Body Weight (kg) 70.45 BMI 28.5 Intake Prior to Admission Excellent Weight change and time frame unable to retrieve wt hx Weight Status Appropriate Subjective/Other Information Consult for LOS. 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 Pt does all the cooking at home, eating 2 -3 meals daily, and currently lives with grandson. Pt reports good appetite currently and observed 100% of breakfast tray was consumed. No reports of N/V/D. Food preferences noted. Burn Absent Trauma Absent GI Symptoms None Food Allergy No Current % PO Good (75-100%) Minimum of two criteria No physical signs of malnutrition #2 Nutrition Diagnosis Inadequate oral intake Etiology SBO As Evidenced by Signs and Symptoms not meeting kcal/PRO needs on clear liquid diet Is patient on ventilator? No Is Patient Ambulatory and/or Out of Bed No REE-([place]-[facility] Je[facility]-confined to bed) 1778.064 Calculation [facility] Additional Notes PRO needs: (1-1.2g/kg) 93-112g/day Fluid needs: 1 mL/kcal Nutrition Intervention Change Diet Order: Continue diet until MD advances Goal #1 diet advancement Goal #2 Meet 75% of kcal/PRO via PO intake Anticipated Discharge Needs: Unable to determine at this time until diet advances. Follow-Up By: 05/06/19 Revisit per MD consult or patient Sign Off request: Additional Comments F/U diet advancement
[2019-05-03] MEDS: hydrALAZINE 25 MG TAB PO SCH (06:29)
[2019-05-03 12:18] VITALS: BP 130/54
--- NOTE | 2019-05-03 12:54 | Discharge Summary ---
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 Pt states that she experienced an episode of vomiting today which was followed by persistent nausea. Pt grandson became concerned and transported pt to [facility] via private vehicle. Pt seen and evaluated in ED and found to have an Incarcerated Internal Hernia complicated by bowel obstruction. Surgery team consulted in ED. Pt to OR as per surgical team. Pt denies Fever, Chills, CP,Palpitations, loose stools, Abdominal Pain, BRBPR, Hemoptysis, Skin Rash, Unintentional Weight Loss, or Night Sweats. Prior admission on 10/03/17 reviewed. Patient had respiratory laparotomy with adhesion lysis. G-tube. Bowel sounds returned. Glyburide erythropoietin R [place], advanced to regular diet. Bowel movements. Discharge today to follow primary care physician and surgeon of the [facility] after removing phill and strips Disposition: DC/[place]-06 HOME UNDER HOME [facility] Time spent for discharge: 35 min - Discharge Diagnoses (1) Dementia Status: Acute Qualifiers: Dementia type: vascular dementia Dementia behavioral disturbance: without behavioral disturbance Qualified Code(s): F01.50 - Vascular dementia without behavioral disturbance (2) Internal hernia Status: Acute (3) Small bowel obstruction Status: Acute (4) Vomiting Status: Acute Qualifiers: Vomiting type: unspecified Vomiting Intractability: non-intractable Nausea presence: with nausea Qualified Code(s): R11.2 - Nausea with vomiting, unspecified Core Measure Documentation - Palliative Care Palliative Care/ Comfort Measures: Not Applicable - Core Measures Any of the following diagnoses?: none Exam - Physical Exam Narrative exam: Constitutional: Well-nourished well-developed. In no distress Head: Normocephalic atraumatic Eyes: Pupils are equal round and reactive to light Nose: No enlarged turbinates, no septal deviation. Mouth: Moist mucous membranes. Neck: Supple no thyromegaly. No bruit. No JVD Heart: Regular rate and rhythm, S1-S2 normal. No rubs murmurs or gallop Lungs: Clear to auscultation bilaterally. no rales or rhonchi Abdomen: Soft, nontender. Bowel sound are present. Extremities: No edema, no cyanosis, no clubbing. Neuro: Alert oriented Oriented x3. No focal sensory or motor deficit. Skin: No rashes or hyperpigmented spots Musculoskeletal system: No joint pain or swelling Hematological: No petechia or subcutanous hemorrhages. Immunological: No multiple septic spots on the skin Lymphatic: No generalized lymphadenopathy Psychiatry: Euthymic. Calm. - Constitutional Vitals: Temp Pulse Resp BP Pulse Ox 97.0 F L 56 L 20 130/54 93 05/03/19 11:00 05/03/19 11:00 05/03/19 11:00 05/03/19 11:00 05/03/19 11:00 Plan Weight Bearing Status: Weight Bear as Tolerated Diet: regular Follow up with: LINH ALBARRAN MD [Staff Physician] - 7 Days PRIMARY CAREMD [Primary Care Provider] - 2-3 Days Prescriptions: Docusate Sodium [Colace CAP] 100 mg PO BID PRN #20 capsule PRN Reason: Constipation Famotidine [Pepcid] 20 mg PO BID #30 tablet Ondansetron [Zofran Odt] 4 mg PO Q8HR #12 tab.jules
[2019-05-03] MEDS: LOSARTAN 50 MG TAB PO SCH (13:31)
[2019-05-03] MEDS: FAMOTIDINE 20 MG TAB PO SCH (13:31)
[2019-05-03] MEDS: hydroCHLOROthiazide 12.5 MG CAP PO SCH (13:32)
[2019-05-03] MEDS: DOCUSATE SODIUM 100 MG CAP PO SCH (13:32)
[2019-05-03] MEDS: atenoloL 50 MG TAB PO SCH (13:32)
== END 2019-05-03 14:56 | disposition home health service (06) | DRG 335 ==
LOC: ED 10:45 → OR 20:51 → IMCU 21:00 → 3B-SURG 05-01 20:51
PROVIDERS: ADMIT Internal Medicine; ATTEND Family Medicine
PROC: 0DNU0ZZ Release Omentum, Open Approach (ICD-10-PCS; principal; 2019-04-26)
PROC: 0DNC0ZZ Release Ileocecal Valve, Open Approach (ICD-10-PCS; 2019-04-26)
PROC: 0DN80ZZ Release Small Intestine, Open Approach (ICD-10-PCS; 2019-04-26)
DX: K46.0 Unspecified abdominal hernia with obstruction, without gangrene (principal); K56.2 Volvulus; K56.609 Unspecified intestinal obstruction, unspecified as to partial versus complete obstruction; E87.1 Hypo-osmolality and hyponatremia; I10 Essential (primary) hypertension; F01.50 Vascular dementia, unspecified severity, without behavioral disturbance, psychotic disturbance, mood disturbance, and anxiety; E11.9 Type 2 diabetes mellitus without complications; E87.6 Hypokalemia; K66.0 Peritoneal adhesions (postprocedural) (postinfection); D72.829 Elevated white blood cell count, unspecified; Z82.49 Family history of ischemic heart disease and other diseases of the circulatory system; Z88.0 Allergy status to penicillin; Z88.2 Allergy status to sulfonamides; Z79.82 Long term (current) use of aspirin; Z79.899 Other long term (current) drug therapy; Z87.442 Personal history of urinary calculi
CPT/HCPCS: 36415; 74018; 74176; 80048; 80053; 81001; 83690; 83735; 84132; 84484; 85025; 85610; 85730; 86850; 86900; 86901; 87086; 93005; 93010; 94760; 96361; 96374; 96375; G0378; J0330; J0360; J1170; J1200; J1630; J2270; J2405; J2704; J2710; J2765; J3010; J3370; J3480; J7050; J7120; Q0162; Q0169